=== PATIENT | male | born 1955 | race Hispanic/Latino ===

== ENCOUNTER 2016-07-08 21:44 | Inpatient (IN) | payer OTHER ==
[2016-07-08] MEDS ORDERED: Sodium Chloride 0.9% 1,000 ML IV STA ×2 (22:09→23:36)
[2016-07-08] MEDS ORDERED: Iohexol 240 (50 ml) PO ONE (22:14)
--- NOTE | 2016-07-08 22:35 | ED PDOC ---
HPI:Nausea, Vomiting, Diarrhea Time Seen by Provider: 07/08/16 21:52 Chief Complaint (Nursing): GI Problem Chief Complaint (Provider): Nausea/Vomiting History Per: Patient History/Exam Limitations: no limitations Onset/Duration Of Symptoms: Hrs (ongoing for 1 hour), Sudden Onset Current Symptoms Are (Timing): Still Present Have you had recent travel within the past 21 days to any of the following countries: [place], [place], [place] or [place]?: No Context: Food (began 30 minutes after eating pizza and a meatball) Severity: Severe Pain Scale Rating Of: 10 Quality Of Discomfort: "Pain" (diffuse) Associated Symptoms: Nausea, Vomiting (2 episodes, non-bloody, non-bilious), Other (abdominal pain). denies: Diarrhea Additional Complaint(s): Jonnathan Wolfe is a 60 year old male, with no pertinent past medical history, who presents to the emergency department for the evaluation of an acute onset of nausea and 2 episodes of non-bilious, non-bloody vomiting, inclusive of severe, diffuse abdominal pain, rated as a 10/10 in severity, that the patient began experiencing 1 hour prior to arrival. Patient states that the pain began approximately 30 minutes within eating pizza and a meatball. Denies diarrhea. PMD: none specified Past Medical History Reviewed: Historical Data, Nursing Documentation, Vital Signs Vital Signs: Last Vital Signs Temp 97.5 F L 07/08/16 21:59 Pulse 70 07/08/16 21:59 Resp 22 07/08/16 21:59 BP 131/86 07/08/16 21:59 Pulse Ox 100 07/08/16 21:59 - Medical History PMH: No Chronic Diseases - Surgical History Surgical History: No Surg Hx - Family History Family History: States: No Known Family Hx - Social History Current smoker - smoking cessation education provided: No Ex-Smoker (has not smoked in the last 12 months): No Alcohol: None Drugs: Denies - Home Medications Home Medications: Ambulatory Orders Medication Instructions Recorded No Known Home Med 07/09/16 - Allergies Allergies/Adverse Reactions: Allergies Allergy/AdvReac Type Severity Reaction Status Date / Time No Known Allergies Allergy Verified 07/08/16 21:59 Review of Systems ROS Statement: Except As Marked, All Systems Reviewed And Found Negative Gastrointestinal: Positive for: Nausea, Vomiting (2 episodes, non-bilious, non- bloody), Abdominal Pain (diffuse). Negative for: Diarrhea Physical Exam - Reviewed Nursing Documentation Reviewed: Yes Vital Signs Reviewed: Yes - Physical Exam Appears: Positive for: Non-toxic, No Acute Distress, Uncomfortable Head Exam: Positive for: ATRAUMATIC, NORMOCEPHALIC Skin: Positive for: Normal Color, Warm, Dry Cardiovascular/Chest: Positive for: Regular Rate, Rhythm. Negative for: Murmur Respiratory: Positive for: Normal Breath Sounds. Negative for: Respiratory Distress Gastrointestinal/Abdominal: Positive for: Normal Exam, Soft, Tenderness ( epigastric) Back: Positive for: Normal Inspection. Negative for: L CVA Tenderness, R CVA Tenderness Neurologic/Psych: Positive for: Alert, Oriented - Laboratory Results Result Diagrams: 07/08/16 22:13 07/08/16 22:13 - ECG O2 Sat by Pulse Oximetry: 100 (RA) Pulse Ox Interpretation: Normal Medical Decision Making Medical Decision Makin:52 Initial Impression: 60 year old male presenting to the emergency department with acute gastrointestinal distress. Initial Plan: * CT Abdomen & Pelvis w/ PO & IV Contrast * Complete Blood Count * Comprehensive Metabolic Panel * Lipase * Urine Dip * Urinalysis * Morphine 4 mg IVP * Sodium Chloride 0.9% 1,000 ml IV at 1,000 mls/hr * Iohexol 50 ml PO * Pepcid 20 mg IV * Zofran 4 mg IV * Reevaluation Labs reviewed, no clinically significant abnormalities. 0121 CT Abdomen and Pelvis With Intravenous Contrast IMPRESSION: Small bowel obstruction transitioning in the right lower quadrant. No apparent prior surgery as a risk factor. Recommend surgical consultation Stomach is fluid distended and would likely benefit with decompression Labs reviewed hsow no clinically significant abnormalities CT finding discussed at length with patient. Patient verbalized understanding on need for admission. Patient also informed that he may require placement of nasogastric tube should he have recurrent vomiting. Patient will be admitted for further treatment, surgical and GI consultation. Case discussed with Dimitry Cantu NP for [facility] Dx: Small bowel obstruction Condition:Fair Addendum Dr Tejeda (Surgical MARIELA) made aware of surgical consult and will communicate with Dr Tran in am Scribe Attestation: Documented by Jack Aguirre, acting as a scribe for Sly Bourne MD. Provider Scribe Attestation: All medical record entries made by the Scribe were at my direction and personally dictated by me. I have reviewed the chart and agree that the record accurately reflects my personal performance of the history, physical exam, medical decision making, and the department course for this patient. I have also personally directed, reviewed, and agree with the discharge instructions and disposition. Disposition - Clinical Impression Clinical Impression: Small bowel obstruction - Patient ED Disposition Is Patient to be Admitted: Yes Discussed With DrRaheel: Dimitry Cantu Counseled Patient/Family Regarding: Studies Performed, Diagnosis - Disposition Disposition Time: 03:00 Condition: FAIR
[2016-07-08 22:44] LABS: BASO # 0.1 K/uL (0.0-0.2); EOS # 0.3 K/uL (0.0-0.7); EOS % 3.3 % (0.0-4.0); HEMATOCRIT 44.1 % (35.0-51.0); LYMPH # 2.5 K/uL (1.0-4.3); LYMPH % 28.3 % (20.0-40.0); MEAN CELL VOLUME 90.9 fl (80.0-94.0); MEAN CORPUSCULAR HEMOGLOBIN 30.6 pg (27.0-31.0); MEAN CORPUSCULAR HGB CONC 33.7 g/dL (33.0-37.0); MEAN PLATELET VOLUME 10.5 fl (7.2-11.7); MONO # 0.9 K/uL (0.0-0.8); MONO % 9.8 % (0.0-10.0); NEUT # 5.1 K/uL (1.8-7.0); NEUT % 57.6 % (50.0-75.0); NRBC % 0.1 % (0.0-0.0); RED CELL DISTRIBUTION WIDTH 13.2 % (11.5-14.5); WHITE BLOOD COUNT 8.9 K/uL (4.8-10.8)
[2016-07-08 22:49] LABS: ALB/GLOB RATIO 1.9 (1.0-2.1); ALKALINE PHOSPHATASE 54 U/L (38-126); ALT/SGPT 35 U/L (21-72); AST/SGOT 31 U/L (17-59); BILIRUBIN,TOTAL 0.8 mg/dl (0.2-1.3); BLOOD UREA NITROGEN 21 mg/dl (9-20); CALCIUM 9.7 mg/dL (8.4-10.2); CARBON DIOXIDE 21 mmol/L (22-30); CHLORIDE 103 mmol/L (98-107); GFR AFRICAN-AMERICAN > 60; GLUCOSE,RANDOM 197 mg/dL (75-110); LIPASE 70 U/L (23-300); POTASSIUM 4.1 MMOL/L (3.6-5.0); SODIUM 137 mmol/l (132-148); TOTAL PROTEIN 7.2 G/DL (6.3-8.2)
[2016-07-08] MEDS ORDERED: Iohexol 240 (50 ml) ONE (22:59)
[2016-07-09] MEDS ORDERED: Iohexol 300 100 ML IJ ONE (00:42)
[2016-07-09] MEDS ORDERED: Sodium Chloride 0.9% 50 ML IV ONE (00:42)
[2016-07-09 01:35] LABS: RBC URINE 2 /hpf (0-3); URINE BACTERIA RARE (<OCC); URINE BILIRUBIN NEGATIVE (NEGATIVE); URINE BLOOD NEGATIVE (NEGATIVE); URINE COLOR YELLOW (YELLOW); URINE GLUCOSE (UA) 50 mg/dL (Normal); URINE KETONE 80 mg/dL (NEGATIVE); URINE LEUKOCYTE ESTERASE NEG Leu/uL (Negative); URINE PROTEIN 30 mg/dL (NEGATIVE); URINE UROBILINOGEN 0.2-1.0 mg/dL (0.2-1.0); WBC URINE 1 /hpf (0-5)
[2016-07-09] MEDS ORDERED: Sodium Chloride 0.9% 1,000 ML IV STA (01:50)
[2016-07-09] MEDS: Sodium Chloride 0.9% 1,000 ML IV SCH ×3 (06:09→21:55)
--- NOTE | 2016-07-09 07:17 | CP.PCM.HP ---
History of Present Illness - History of Present Illness History of Present Illness: pt admitted for sbo. had sudden onset rlq pain. surgical consult appriciated. ct and bw reviwed. pt is npo. no n/v at present no med/surg hx. pt denies precepitating factors. Present on Admission - Present on Admission Any Indicators Present on Admission: No Review of Systems - Gastrointestinal Gastrointestinal: As Per HPI, Abdominal Pain, Nausea, Vomiting Past Patient History - Past Medical History & Family History Past Medical History?: No - Past Social History Smoking Status: Never Smoked - MUSCULOSKELETAL/RHEUMATOLOGICAL Hx Falls: No - PSYCHIATRIC Hx Substance Use: No - SURGICAL HISTORY Hx Surgeries: No - ANESTHESIA Hx Anesthesia: No Meds Allergies/Adverse Reactions: Allergies Allergy/AdvReac Type Severity Reaction Status Date / Time No Known Allergies Allergy Verified 07/08/16 21:59 Physical Exam - Constitutional Appears: Well, Non-toxic, No Acute Distress - Head Exam Head Exam: ATRAUMATIC, NORMAL INSPECTION, NORMOCEPHALIC - Eye Exam Eye Exam: EOMI, Normal appearance, PERRL Pupil Exam: NORMAL ACCOMODATION, PERRL - ENT Exam ENT Exam: Mucous Membranes Moist, Normal Exam - Neck Exam Neck exam: Positive for: Normal Inspection - Respiratory Exam Respiratory Exam: Clear to Auscultation Bilateral, NORMAL BREATHING PATTERN - Cardiovascular Exam Cardiovascular Exam: REGULAR RHYTHM, RRR, +S1, +S2 - GI/Abdominal Exam GI & Abdominal Exam: Normal Bowel Sounds, Soft, Tenderness Additional comments: b/l lower quads - Extremities Exam Extremities exam: Positive for: full ROM, normal capillary refill, normal inspection, pedal pulses present - Back Exam Back exam: NORMAL INSPECTION - Neurological Exam Neurological exam: Alert, CN II-XII Intact, Normal Gait, Oriented x3, Reflexes Normal - Psychiatric Exam Psychiatric exam: Normal Affect, Normal Mood - Skin Skin Exam: Dry, Intact, Normal Color, Warm Results - Vital Signs Recent Vital Signs: Last Vital Signs Temp 98.1 F 07/09/16 01:44 Pulse 66 07/09/16 05:24 Resp 16 07/09/16 05:24 BP 137/83 07/09/16 01:44 Pulse Ox 98 07/09/16 05:24 - Labs Result Diagrams: 07/08/16 22:13 07/08/16 22:13 Assessment & Plan (1) DVT prophylaxis Assessment and Plan: scd and ae hose hold anticoag unti sugical option r/o Status: Acute (2) Small bowel obstruction Assessment and Plan: surgery consult npo pain/nausea control ivf Status: Acute Decision To Admit - Pt Status Changed To: Hospital Disposition Of: Inpatient - Admit Certification Admit to Inpatient:: After my assessment, the patient will require hospitalization for at least two midnights. This is because of the severity of symptoms shown, intensity of services needed, and/or the medical risk in this patient being treated as an outpatient. - . Bed Request Type: Med/Surg Admitting Physician: Lucas Pérez
--- NOTE | 2016-07-09 07:18 | CP.PCM.CON ---
<Ina Haque - Last Filed: 07/09/16 08:12> History of Present Illness - History of Present Illness History of Present Illness: Surgery Consult: Dr. Blake Pt is a 60M with no significant past medical or surgical hx who presented to [facility] with generalized abdominal pain that started last night. Pt states he has never had similar pain in the past, and in order to help his pain he induced himself to vomit. However, the pain did not improve and he came to the ER. He states his last BM was yesterday morning and denies flatus or BM since then. He denies any more episodes of vomiting. Denies F/C, chest pain or SOB. In the ER, a CT abdomen/pelvis was obtained and shows dilated loops of SB with a transition point suspicious for SBO. PMHx: denies PSHx: denies SocialHx: denies smoking, social EtOH NKDA Review of Systems - Review of Systems All systems: reviewed and no additional remarkable complaints except (as per HPI ) Past Patient History - Past Medical History & Family History Past Medical History?: No - Past Social History Smoking Status: Never Smoked - MUSCULOSKELETAL/RHEUMATOLOGICAL Hx Falls: No - PSYCHIATRIC Hx Substance Use: No - SURGICAL HISTORY Hx Surgeries: No - ANESTHESIA Hx Anesthesia: No Meds Allergies/Adverse Reactions: Allergies Allergy/AdvReac Type Severity Reaction Status Date / Time No Known Allergies Allergy Verified 07/08/16 21:59 - Medications Medications: Current Medications Famotidine (Pepcid) 20 mg IV Q12 NAIDA Hydromorphone HCl (Dilaudid) 1 mg IVP Q6 PRN PRN Reason: abdominal pain Last Admin: 07/09/16 06:16 Dose: 1 mg Sodium Chloride (Sodium Chloride 0.9%) 1,000 mls @ 150 mls/hr IV .Q6H40M STA Stop: 07/09/16 08:29 Last Admin: 07/09/16 02:10 Dose: 150 mls/hr Sodium Chloride (Sodium Chloride 0.9%) 1,000 mls @ 125 mls/hr IV .Q8H NAIDA Stop: 07/10/16 05:13 Last Admin: 07/09/16 06:09 Dose: Not Given Ondansetron HCl (Zofran Inj) 4 mg IV Q6 PRN PRN Reason: Nausea/Vomiting Physical Exam - Constitutional Appears: Well, No Acute Distress - Head Exam Head Exam: ATRAUMATIC, NORMOCEPHALIC - ENT Exam ENT Exam: Mucous Membranes Moist - Respiratory Exam Respiratory Exam: NORMAL BREATHING PATTERN - Cardiovascular Exam Cardiovascular Exam: RRR - GI/Abdominal Exam GI & Abdominal Exam: Diminished Bowel Sounds, Distended (slight distention), Soft, Tenderness (generalized) - Extremities Exam Extremities exam: Positive for: pedal pulses present - Neurological Exam Neurological exam: Alert, Oriented x3 - Skin Skin Exam: Dry, Warm Results - Vital Signs Recent Vital Signs: Last Vital Signs Temp 98.1 F 07/09/16 01:44 Pulse 66 07/09/16 05:24 Resp 16 07/09/16 05:24 BP 137/83 07/09/16 01:44 Pulse Ox 98 07/09/16 05:24 - Labs Result Diagrams: 07/08/16 22:13 07/08/16 22:13 - Imaging and Cardiology CT scan - abdomen Status: Image reviewed by me Assessment & Plan - Assessment and Plan (Free Text) Assessment: 60M with SBO Plan: - NPO - IVF, pain management - will reassess need for NGT if pt starts to vomit - serial abdominal exams - encourage ambulation - d/w Dr. Hayden Haque, PGY-2 Surgery <Primo Blake - Last Filed: 07/09/16 10:11> History of Present Illness - History of Present Illness History of Present Illness: Patient was seen and examined at the bedside. Agree with resident's note above Meds - Medications Medications: Current Medications Famotidine (Pepcid) 20 mg IV Q12 NAIDA Hydromorphone HCl (Dilaudid) 1 mg IVP Q4H PRN PRN Reason: abdominal pain Sodium Chloride (Sodium Chloride 0.9%) 1,000 mls @ 125 mls/hr IV .Q8H NAIDA Stop: 07/10/16 05:13 Last Admin: 07/09/16 06:09 Dose: Not Given Ondansetron HCl (Zofran Inj) 4 mg IV Q6 PRN PRN Reason: Nausea/Vomiting Results - Vital Signs Recent Vital Signs: Last Vital Signs Temp 98.7 F 07/09/16 08:38 Pulse 63 07/09/16 08:38 Resp 20 07/09/16 08:38 BP 142/81 07/09/16 08:38 Pulse Ox 99 07/09/16 08:38 - Labs Result Diagrams: 07/08/16 22:13 07/08/16 22:13 Assessment & Plan - Assessment and Plan (Free Text) Plan: - Keep NPO - IV fluids - Pain control - NG tube insersion - Pepcid - Will follow
--- NOTE | 2016-07-09 08:26 | CT ---
PROCEDURE: CT Abdomen and Pelvis with contrast HISTORY: Diffuse, generalized abdominal pain. COMPARISON: None. TECHNIQUE: Contrast dose: 95 cc Omnipaque 300. Radiation dose: Total exam DLP = mGy-cm. This CT exam was performed using one or more of the following dose reduction techniques: Automated exposure control, adjustment of the mA and/or kV according to patient size, and/or use of iterative reconstruction technique. FINDINGS: LOWER THORAX: Unremarkable. LIVER: Unremarkable. No gross lesion or ductal dilatation. GALLBLADDER AND BILE DUCTS: Unremarkable. PANCREAS: Unremarkable. No gross lesion or ductal dilatation. SPLEEN: Unremarkable. ADRENALS: Unremarkable. No mass. KIDNEYS AND URETERS: Unremarkable. No hydronephrosis. No solid mass. VASCULATURE: Unremarkable. No aortic aneurysm. BOWEL: Distal small bowel obstruction with proximal loops of dilated fluid-filled the ileum and jejunum. The stomach is markedly distended. APPENDIX: Normal appendix. PERITONEUM: No free air, trace free fluid in the pelvis. LYMPH NODES: Unremarkable. No enlarged lymph nodes. BLADDER: Bladder wall thickening more likely to be related to decompression than cystitis. REPRODUCTIVE: Unremarkable. BONES: No acute fracture. Grade 1 anterolisthesis L5-S1. Associated spondylolysis. OTHER FINDINGS: None. IMPRESSION: Early, incomplete small bowel obstruction. Concordant results (preliminary interpretation) provided by Jumio. Procedure Completed: 01:00. Preliminary ([facility]Rad) Report: Dictated and Authenticated: 01:21. Final Interpretation: 08:23. July 09, 2016.
[2016-07-09] MEDS ORDERED: Chlorhexidine Gluconate 1 APPL/PKT TP ONE (10:02)
--- NOTE | 2016-07-09 12:26 | RAD ---
HISTORY: sbo COMPARISON: None available. TECHNIQUE: Chest PA and lateral FINDINGS: LUNGS: No focal consolidation. Please note that chest x-ray has limited sensitivity for the detection of pulmonary masses. PLEURA: No significant pleural effusion identified. No definite pneumothorax . CARDIOVASCULAR: Heart size appears within normal limits. Mildly tortuous aorta. OSSEOUS STRUCTURES: No acute osseous abnormality identified. VISUALIZED UPPER ABDOMEN: Nonspecific bowel loops within the upper abdomen. OTHER FINDINGS: None. IMPRESSION: No focal consolidation, significant pleural effusion, or definite pneumothorax identified.
[2016-07-09 12:31] LABS: PARTIAL THROMBOPLASTIN TIME 27.1 SECONDS (23.3-32.5)
[2016-07-09] MEDS ORDERED: HYDROmorphone 0.5 mg/0.5 ml ISec ONE ×3 (12:54→15:37)
[2016-07-09] MEDS ORDERED: HYDROmorphone 0.5 mg/0.5 ml ISec IVP STA (12:59)
[2016-07-09] MEDS ORDERED: Bupivacaine 0.5% Inj(30mL) ONE (13:07)
[2016-07-09] MEDS ORDERED: Propofol 10 mg/ml Inj (20 ML) ONE (13:27)
[2016-07-09] MEDS ORDERED: Midazolam 2 MG/2 ML VIAL ONE (13:27)
[2016-07-09] MEDS ORDERED: Succinylcholine 200 mg/10 ml Inj IV ONE (13:27)
[2016-07-09] MEDS ORDERED: Rocuronium 10 mg/ml (5 ml) ONE (13:28)
[2016-07-09] MEDS ORDERED: Lactated Ringer's 1,000 ML IV ONE ×2 (13:28→15:10)
[2016-07-09] MEDS ORDERED: Neostigmine Methylsulfate 3mg/3ml Syringe IV ONE (14:37)
--- NOTE | 2016-07-09 15:18 | PCM.SURG1 ---
Surgeon's Initial Post Op Note - Surgeon's Notes Surgeon: Dr. Blake Production Wood Craftsman: Dr. Payne, Dr. Luis, Dr. Guidry Type of Anesthesia: General Endo Pre-Operative Diagnosis: Small bowel Obstruction Operative Findings: Ischemic small bowel Post-Operative Diagnosis: Small bowel Obstruction Operation Performed: Diagnoistic Laparoscopy. Exploratory Laparotomy. Small bowel resection Specimen/Specimens Removed: portion of ileum Estimated Blood Loss: EBL {In ML}: 20 Blood Products Given: N/A Drains Used: No Drains Post-Op Condition: Good Date of Surgery/Procedure: 07/09/16 Time of Surgery/Procedure: 13:00
[2016-07-09] MEDS: HYDROmorphone 0.5 mg/0.5 ml ISec IVP PRN ×2 (15:30→15:40)
[2016-07-09] MEDS ORDERED: Piperacillin/Tazobact 3.375 gm Inj IVPB ONE (16:10)
--- NOTE | 2016-07-09 17:51 | OP ---
PROCEDURE DATE: 07/09/2016 PREOPERATIVE DIAGNOSIS: Small-bowel obstruction. POSTOPERATIVE DIAGNOSIS: Small-bowel obstruction, ischemic bowel. SURGEON: Primo Blake MD LANDSCAPE PHOTOGRAPHER: Elmer BROWN LANDSCAPE PHOTOGRAPHER: Toby PROCEDURE: Diagnostic laparoscopy, exploratory laparotomy, small-bowel resection. ANESTHESIA: General with endotracheal intubation. INTRAVENOUS FLUIDS: Crystalloids. ESTIMATED BLOOD LOSS: 50 mL. INTRAOPERATIVE FINDINGS: Necrotic small bowel. SPECIMEN: Small bowel. BRIEF HISTORY: The patient is a very pleasant 60-year-old gentleman who came to the hospital complaining of half a day duration of severe abdominal pain of sudden onset. Upon further investigation, the patient was found to have small- bowel obstruction on a CAT scan. All the risks and benefits of the procedure were explained to the patient and, with the patient having a full understanding of all the risks and benefits involved, informed consent was obtained and patient was taken to the operating room for above-stated procedure. PROCEDURE: The patient was brought into the operating room and placed supine on the operating table. Bilateral Flowtron boots were applied to patient's lower extremities. After successful induction of anesthesia and successful endotracheal intubation by the anesthesia team, Pat catheter was inserted into the patient's urinary bladder and, subsequent to that, the patient's abdomen was shaved and prepped with ChloraPrep stick and draped in the standard surgical fashion. Prior to the beginning of the procedure, patient received prophylactic Ancef antibiotic. Timeout was called in the room and everyone in the room was in agreement. Using Veress needle, patient's abdomen was entered at the umbilicus and pneumoperitoneum was achieved with good opening pressures. Once this was accomplished, using an 11-blade scalpel knife, approximately 5 mm incision was made in transverse fashion in the left upper quadrant of the patient's abdomen and, subsequent to that, using a 5 mm Optiview Visiport, patient's abdomen was entered under direct visualization and, once this was accomplished, a 5 mm 0-degree scope was introduced into the patient's abdomen and abdomen was inspected. Our attention was turned to the lower abdomen of the patient, where there appeared to be a loop of ischemic bowel. At that point in time, another 5 mm incision was made with an 11-blade scalpel knife in a transverse fashion, left lower quadrant of the patient's abdomen and, subsequent to that, another 5 mm trocar was introduced into the patient's abdomen. At that point in time, using atraumatic bowel grasper, the bowel was run up to the point of area of bowel necrosis. At that point in time, decision was made to convert the procedure to exploratory laparotomy. Using 10-blade scalpel knife, approximately a 6 cm incision was made below the umbilicus in a longitudinal fashion and, subsequent to that, dissection was carried down with electrical cautery until the fascial layer was visualized. Once the fascial layer was visualized, it was transected with electrical cautery and 2 Kati clamps were placed on both ends of the fascia. At that point in time, fascial layer was opened up fully along the entire incision and the peritoneal layer was encountered. Peritoneum was clamped with a Kati clamp and transected with a Metzenbaum scissor. At that point in time, the patient's abdominal cavity was entered. Upon the entrance to the abdomen, we visualized some bloody ascites. Fluid was suctioned out and, at that point in time, the small bowel was eviscerated and it was run all the way from the ligament of Treitz all the way down to the ileocecal valve. There appeared to be an area of ischemia of the small bowel measuring approximately 15 cm in length. At that point in time , the patient's entire abdomen was examined and there appeared to be a small adhesive band coming from the sigmoid colon. That was probably the cause of the patient's internal herniation of the bowel and bowel ischemia. Once this was accomplished, the entire small bowel was reduced back into the abdominal cavity and the area of ischemia was inspected and decision was made to resect that area. Using electrical cautery a small bonifacio was made in the mesentery slightly proximal to the area of ischemia and Kati clamp was passed through the mesentery and a 75-mm blue load FINA stapler was fired across the bowel. Then, attention was turned to the distal end of the ischemic bowel. Another small bonifacio was made in the mesentery slightly distal to the area of the bowel ischemia and, subsequent to that, Kati clamp was passed through the area of mesentery and, subsequent to that, another 75-mm blue load FINA stapler was fired across the bowel. At that point in time, the mesentery of the small bowel was taken with a Kati technique and a specimen was transected with Metzenbaum scissor and passed off to the Hou stand as specimen. At that point in time, using 0 Vicryl tie, the mesentery was tied off and Kati clamps were removed. Once this was accomplished, 2 ends of the bowel were approximated right next in a [id number] fashion with 3-0 silk suture on SH needle, 4 interrupted sutures were placed and, once this was accomplished, 2 enterotomies were made in both proximal and distal ends of the small bowel. At that point in time 2 Allis clamps were introduced into the bowel lumen. Once this was accomplished, we used a 75-mm blue load FINA stapler to create anastomosis and, at that point in time, the defect of the bowel was closed with blue load 60 TA stapler. Once the stapler was fired, the redundant piece of the bowel was transected with curved Hou and, at that point in time, the staple line was reinforced with a running 3-0 chromic suture. Once this was accomplished, anastomosis was inspected. It appeared to be satisfactory and it appeared to be hemostatic. The bowel was reduced back into the abdominal cavity. Some of the bloody ascites was suctioned out and, at that point in time, 2 Zen clamps were placed on both ends of the fascia and the fascia layer was closed with two #1 looped PDS's, one from above, one from below, tied in the middle and , at that point in time, the patient's wound was irrigated and dried, and skin shilpi were applied to the skin. The patient's abdomen was washed and dried and a clean dressing with 4 x 4s, ABD, and some tape were applied to the incision. The patient was successfully extubated by the anesthesia team, transferred to the stretcher, and taken to the recovery room in a stable condition. At the end of the procedure, all instrument counts, needles, and sponges were correct. Primo Blake MD cc: [id number] TT: 07/09/2016 17:50:33 osvaldo JENNINGS
--- NOTE | 2016-07-09 19:10 | CARD ---
APPROVED REPORT EKG Measurement Heart [id number] <Conclusion> Normal sinus rhythm Normal ECG
[2016-07-09] MEDS: Piperacillin/Tazobact 3.375 GM in Sodium Chloride 0.9% 100 ML IVPB SCH ×2 (19:12→21:47)
[2016-07-09] MEDS: Lactated Ringer's 1,000 ML IV SCH (19:12)
[2016-07-10] MEDS: Lactated Ringer's 1,000 ML IV SCH ×3 (01:21→11:42)
[2016-07-10] MEDS: Piperacillin/Tazobact 3.375 GM in Sodium Chloride 0.9% 100 ML IVPB SCH ×4 (04:07→22:00)
--- NOTE | 2016-07-10 07:20 | CP.PCM.PN ---
<Suzan Luis - Last Filed: 07/10/16 07:17> Subjective - Date & Time of Evaluation Date of Evaluation: 07/10/16 Time of Evaluation: 07:17 - Subjective Subjective: General Surgery - Dr. Blake Pt S&E. JOSE ROBERTO. Pt complains of mild abdominal pain from incision but states overall much improved since prior to surgery. He has NGT in place w/ thick brown drainage. Braga in place with clear yellow urine 950cc/12hrs. Pt denies any N/V, F/C, SOB/Cp. Objective - Vital Signs/Intake and Output Vital Signs (last 24 hours): Temp Pulse Resp BP Pulse Ox 98.9 F 75 18 148/85 96 07/10/16 05:00 07/10/16 05:00 07/10/16 05:00 07/10/16 05:00 07/10/16 05:00 Intake and Output: 07/10/16 07/10/16 06:59 18:59 Intake Total 500 Output Total 300 Balance 200 - Medications Medications: Current Medications Famotidine (Pepcid) 20 mg IV Q12 [facility] Last Admin: 07/09/16 22:00 Dose: 20 mg Hydromorphone HCl (Dilaudid) 1 mg IVP Q4H PRN PRN Reason: Pain, moderate (4-7) Lactated Ringer's (Lactated Ringer's) 1,000 mls @ 100 mls/hr IV .Q10H [facility] Last Admin: 07/10/16 02:25 Dose: 100 mls/hr Piperacillin Sod/Tazobactam (Sod 3.375 gm/ Sodium Chloride) 100 mls @ 100 mls/ hr IVPB Q6 [facility] Last Admin: 07/10/16 04:07 Dose: 100 mls/hr Ondansetron HCl (Zofran Inj) 4 mg IV Q6 PRN PRN Reason: Nausea/Vomiting Last Admin: 07/09/16 10:26 Dose: 4 mg - Labs Labs: PT 11.5 SECONDS (9.6-11.2) H 07/09/16 11:50 INR 1.11 (0.92-1.08) H 07/09/16 11:50 APTT 27.1 SECONDS (23.3-32.5) 07/09/16 11:50 - Constitutional Appears: No Acute Distress - Head Exam Head Exam: ATRAUMATIC, NORMAL INSPECTION, NORMOCEPHALIC - Eye Exam Eye Exam: Normal appearance - Respiratory Exam Respiratory Exam: NORMAL BREATHING PATTERN. absent: Respiratory Distress - GI/Abdominal Exam GI & Abdominal Exam: Soft, Tenderness (mild ttp around incision). absent: Distended, Guarding, Rebound - Neurological Exam Neurological Exam: Alert, Oriented x3 - Psychiatric Exam Psychiatric exam: Normal Affect, Normal Mood - Skin Skin Exam: Dry, Intact Assessment and Plan - Assessment and Plan (Free Text) Assessment: 60 yo M POD #1 s/p Dx Lap, Ex-Lap with Small bowel resection for SBO -Continue NGT to low continuous suction, may be disconnected periodically for ambulation -D/C braga catheter -Continue IVF, may have ice chips -Zosyn -Pain control -Encourage OOB/Incentive Spirometer DW Dr. Hayden Luis, PGY2 <Primo Blake - Last Filed: 07/10/16 18:33> Subjective - Date & Time of Evaluation Time of Evaluation: 18:30 - Subjective Subjective: Patient was seen and examined at the bedside. Zee with resident's note above Objective - Vital Signs/Intake and Output Vital Signs (last 24 hours): Temp Pulse Resp BP Pulse Ox 100.3 F H 73 18 147/92 H 100 07/10/16 16:19 07/10/16 16:19 07/10/16 16:19 07/10/16 16:19 07/10/16 16:19 Intake and Output: 07/10/16 07/10/16 06:59 18:59 Intake Total 500 1400 Output Total 300 1225 Balance 200 175 - Medications Medications: Current Medications Acetaminophen (Tylenol 650 Mg Supp) 650 mg [place] Q6 PRN PRN Reason: Fever >100.4 F Famotidine (Pepcid) 20 mg IV Q12 [facility] Last Admin: 07/10/16 09:43 Dose: 20 mg Hydromorphone HCl (Dilaudid) 1 mg IVP Q4H PRN PRN Reason: Pain, moderate (4-7) Last Admin: 07/10/16 09:51 Dose: 1 mg Lactated Ringer's (Lactated Ringer's) 1,000 mls @ 100 mls/hr IV .Q10H [facility] Last Admin: 07/10/16 11:42 Dose: Not Given Piperacillin Sod/Tazobactam (Sod 3.375 gm/ Sodium Chloride) 100 mls @ 100 mls/ hr IVPB Q6 [facility] Last Admin: 07/10/16 16:06 Dose: 100 mls/hr Sodium Chloride (Sodium Chloride 0.9%) 1,000 mls @ 999 mls/hr IV .Q1H1M [facility] Stop: 07/11/16 11:07 Last Admin: 07/10/16 13:03 Dose: Not Given Ondansetron HCl (Zofran Inj) 4 mg IV Q6 PRN PRN Reason: Nausea/Vomiting Last Admin: 07/09/16 10:26 Dose: 4 mg - Labs Labs: 07/10/16 06:40 07/10/16 06:40 PT 11.5 SECONDS (9.6-11.2) H 07/09/16 11:50 INR 1.11 (0.92-1.08) H 07/09/16 11:50 APTT 27.1 SECONDS (23.3-32.5) 07/09/16 11:50 Assessment and Plan - Assessment and Plan (Free Text) Plan: - Pain control - Repeat labs in am - DVT ppx - Will follow
[2016-07-10 07:49] LABS: BASO % 0.4 % (0.0-2.0); EOS % 0.1 % (0.0-4.0); HEMATOCRIT 43.5 % (35.0-51.0); LYMPH # 1.3 K/uL (1.0-4.3); LYMPH % 11.8 % (20.0-40.0); MEAN CELL VOLUME 92.1 fl (80.0-94.0); MEAN CORPUSCULAR HEMOGLOBIN 30.4 pg (27.0-31.0); MEAN PLATELET VOLUME 11.2 fl (7.2-11.7); MONO # 0.9 K/uL (0.0-0.8); MONO % 8.4 % (0.0-10.0); NEUT # 8.8 K/uL (1.8-7.0); NEUT % 79.3 % (50.0-75.0); NRBC % 0.1 % (0.0-0.0); RED CELL DISTRIBUTION WIDTH 13.4 % (11.5-14.5); WHITE BLOOD COUNT 11.2 K/uL (4.8-10.8)
[2016-07-10 08:00] LABS: BLOOD UREA NITROGEN 10 mg/dl (9-20); CALCIUM 8.4 mg/dL (8.4-10.2); CARBON DIOXIDE 28 mmol/L (22-30); CHLORIDE 102 mmol/L (98-107); GFR AFRICAN-AMERICAN > 60; GLUCOSE,RANDOM 120 mg/dL (75-110); SODIUM 136 mmol/l (132-148); TOTAL PROTEIN 5.7 G/DL (6.3-8.2)
[2016-07-10 08:01] LABS: ALB/GLOB RATIO 1.6 (1.0-2.1); ALKALINE PHOSPHATASE 39 U/L (38-126); ALT/SGPT 26 U/L (21-72); AST/SGOT 34 U/L (17-59); BILIRUBIN,TOTAL 1.1 mg/dl (0.2-1.3)
--- NOTE | 2016-07-10 08:22 | CP.PCM.PN ---
Subjective - Date & Time of Evaluation Date of Evaluation: 07/10/16 Time of Evaluation: 08:20 - Subjective Subjective: pt w/ ngt in plac eand braga s/p ex lap and necrotic bowel resection. pain controlled w/ meds. surgical progress note appriciated. ngt outpt noted. bw reviewed. Objective - Vital Signs/Intake and Output Vital Signs (last 24 hours): Temp Pulse Resp BP Pulse Ox 99.7 F H 73 20 141/84 95 07/10/16 07:47 07/10/16 07:47 07/10/16 07:47 07/10/16 07:47 07/10/16 07:47 Intake and Output: 07/10/16 07/10/16 06:59 18:59 Intake Total 500 1400 Output Total 300 1225 Balance 200 175 - Medications Medications: Current Medications Famotidine (Pepcid) 20 mg IV Q12 [facility] Last Admin: 07/09/16 22:00 Dose: 20 mg Hydromorphone HCl (Dilaudid) 1 mg IVP Q4H PRN PRN Reason: Pain, moderate (4-7) Lactated Ringer's (Lactated Ringer's) 1,000 mls @ 100 mls/hr IV .Q10H [facility] Last Admin: 07/10/16 02:25 Dose: 100 mls/hr Piperacillin Sod/Tazobactam (Sod 3.375 gm/ Sodium Chloride) 100 mls @ 100 mls/ hr IVPB Q6 [facility] Last Admin: 07/10/16 04:07 Dose: 100 mls/hr Ondansetron HCl (Zofran Inj) 4 mg IV Q6 PRN PRN Reason: Nausea/Vomiting Last Admin: 07/09/16 10:26 Dose: 4 mg - Labs Labs: 07/10/16 06:40 07/10/16 06:40 PT 11.5 SECONDS (9.6-11.2) H 07/09/16 11:50 INR 1.11 (0.92-1.08) H 07/09/16 11:50 APTT 27.1 SECONDS (23.3-32.5) 07/09/16 11:50 - Constitutional Appears: Well, Non-toxic, No Acute Distress - Head Exam Head Exam: ATRAUMATIC, NORMAL INSPECTION, NORMOCEPHALIC - Eye Exam Eye Exam: EOMI, Normal appearance, PERRL Pupil Exam: NORMAL ACCOMODATION, PERRL - ENT Exam ENT Exam: Mucous Membranes Moist, Normal Exam - Neck Exam Neck Exam: Full ROM, Normal Inspection. absent: Lymphadenopathy - Respiratory Exam Respiratory Exam: Clear to Ausculation Bilateral, NORMAL BREATHING PATTERN - Cardiovascular Exam Cardiovascular Exam: REGULAR RHYTHM, RRR, +S1, +S2. absent: Murmur - GI/Abdominal Exam GI & Abdominal Exam: Soft, Hypoactive Bowel Sounds. absent: Tenderness Additional comments: dsg w/ scant dc - Extremities Exam Extremities Exam: Full ROM, Normal Capillary Refill, Normal Inspection. absent : Joint Swelling, Pedal Edema - Back Exam Back Exam: NORMAL INSPECTION - Neurological Exam Neurological Exam: Alert, Awake, CN II-XII Intact, Normal Gait, Oriented x3 - Psychiatric Exam Psychiatric exam: Normal Affect, Normal Mood - Skin Skin Exam: Dry, Intact, Normal Color, Warm Assessment and Plan (1) DVT prophylaxis Status: Acute (2) Small bowel obstruction Status: Acute - Assessment and Plan (Free Text) Assessment: (1) DVT prophylaxis Assessment and Plan: scd and ae hose hold anticoag unti sugical option r/o start lovenox tomorrow if surgery clears Status: Acute (2) Small bowel obstruction Assessment and Plan: surgery consult npo pain/nausea control ivf pod 1 bowel resection cont ngt and dc braga as per surgery will follow closely Status: Acute
[2016-07-10] MEDS: HYDROmorphone 0.5 mg/0.5 ml ISec IVP PRN ×2 (09:51→19:45)
--- NOTE | 2016-07-10 11:31 | PCM.RRTMUL ---
<Aris Tello - Last Filed: 07/10/16 11:38> BOAT GARNISHER Nurse Assessment - Vital Signs Blood Pressure:: 141/84 Pulse Rate:: 73 Respiratory Rate:: 20 Temperature:: 99.7 F I.Reason for BOAT GARNISHER - A) Acute Change in Patient: (Select all that apply): Acute change in heart rate less than 50 or greater than 120 - A) Initial Vital Signs: Blood Pressure: 152/104 Pulse Rate: 218 (Patient was having chills) Respiratory Rate: 20 Temperature: 102 F O2 Sat by Pulse Oximetry: 94 - B) Neurological Status (Select all that apply): Alert, Oriented, Follows Commands - C) Respiratory Oxygen Delivery Method: Room Air - Constitutional Appears: No Acute Distress - Head Head Exam: NORMAL INSPECTION - Eyes Eye Exam: PERRL - Respiratory Exam Respiratory Exam: Clear to Ausculation Bilateral, NORMAL BREATHING PATTERN - Cardiovascular Exam Cardiovascular Exam: REGULAR RHYTHM - GI/Abdominal Exam GI & Abdominal Exam: Tenderness (moderate diffuse tenderness), Normal Bowel Sounds. absent: Distended - Neurological Exam Neurological Exam: Alert, Awake, Oriented x3 - Extremities Exam Extremities Exam: Normal Capillary Refill Plan - A. End of BOAT GARNISHER Vital Signs: Blood Pressure: 142/77 Pulse Rate: 94 Respiratory Rate: 18 Temperature: 102 F O2 Sat by Pulse Oximetry: 96 Finger Stick Blood Glucose: 180 - B. Assessment of Findings&Treatment Plan 60 y/o M admitted for intestinal occlusion POD1 was called BOAT GARNISHER for elevated HR. A&P Sinus tachycardia due to fever No SOB or CP resolved POD1(Intestinal occlusion) Initially HR 218 while patient was shivering, most likely inaccurate reading BP 152/104 Temp 102F Alert, Oriented O2sat RA 94 Accucheck 180 NG tube functional with greenish/brownish drainage Tylenol WA stat once and PRN IV NS bolus 1L then 150mls EKG: WNL Repeat VS: HR 94, BP 142/77 Patient stable Sx contacted Cont Zosyn IV Incentive spirometer WBC from AM 11.2 <Breanne Szymanski - Last Filed: 07/10/16 17:30> Attending/Attestation - Attestation I have personally seen and examined this patient.: Yes I have fully participated in the care of the patient.: Yes I have reviewed all pertinent clinical information, including history, physical exam and plan: Yes Notes (Text): 07/10/16 17:26 BOAT GARNISHER called bec of tachycardia Pt seen and examined with the residenrts, case discussed , agree with above Event Note. Initial Heart Rate reading likely erroneous as pt was having chills - VS machine picked up the shivering as tachycardia Pt tachycardic however only 104 on manual likely due to fever of 102F - Tylenol suppository - IVF hydration - EKG : normal SR, no abn rhythm - Dr Blake notified of event, case discussed - Dr Cantu- pt's PMD notified of event - Surgical residents came up to see pt
[2016-07-10] MEDS: Sodium Chloride 0.9% 1,000 ML IV SCH ×2 (11:43→13:03)
[2016-07-11] MEDS: Lactated Ringer's 1,000 ML IV SCH ×2 (00:24→12:50)
[2016-07-11] MEDS: Piperacillin/Tazobact 3.375 GM in Sodium Chloride 0.9% 100 ML IVPB SCH ×4 (03:42→22:18)
--- NOTE | 2016-07-11 07:31 | CP.PCM.PN ---
Subjective - Date & Time of Evaluation Date of Evaluation: 07/11/16 Time of Evaluation: 07:31 - Subjective Subjective: pt doing well in bed. no complaints. still w/ abd tenderness. ngt in placement. braga dc nad pt urinating freely. had fever and tachycardia yesterday relief w/ tylenol. am labs penidng surgery note appriciated. Objective - Vital Signs/Intake and Output Vital Signs (last 24 hours): Temp Pulse Resp BP Pulse Ox 98.4 F 64 19 137/76 97 07/11/16 04:19 07/11/16 04:19 07/11/16 04:19 07/11/16 04:19 07/11/16 04:19 Intake and Output: 07/11/16 07/11/16 06:59 18:59 Output Total 400 Balance -400 - Medications Medications: Current Medications Acetaminophen (Tylenol 650 Mg Supp) 650 mg [place] Q6 PRN PRN Reason: Fever >100.4 F Famotidine (Pepcid) 20 mg IV Q12 [facility] Last Admin: 07/10/16 21:00 Dose: 20 mg Heparin Sodium (Porcine) (Heparin) 5,000 units SC Q8 [facility] PRN Reason: Protocol Last Admin: 07/11/16 00:23 Dose: 5,000 units Hydromorphone HCl (Dilaudid) 1 mg IVP Q4H PRN PRN Reason: Pain, moderate (4-7) Last Admin: 07/11/16 04:28 Dose: 1 mg Lactated Ringer's (Lactated Ringer's) 1,000 mls @ 100 mls/hr IV .Q10H [facility] Last Admin: 07/11/16 00:24 Dose: 100 mls/hr Piperacillin Sod/Tazobactam (Sod 3.375 gm/ Sodium Chloride) 100 mls @ 100 mls/ hr IVPB Q6 [facility] Last Admin: 07/11/16 03:42 Dose: 100 mls/hr Sodium Chloride (Sodium Chloride 0.9%) 1,000 mls @ 999 mls/hr IV .Q1H1M [facility] Stop: 07/11/16 11:07 Last Admin: 07/10/16 13:03 Dose: Not Given Ondansetron HCl (Zofran Inj) 4 mg IV Q6 PRN PRN Reason: Nausea/Vomiting Last Admin: 07/09/16 10:26 Dose: 4 mg - Labs Labs: 07/10/16 06:40 07/10/16 06:40 PT 11.5 SECONDS (9.6-11.2) H 07/09/16 11:50 INR 1.11 (0.92-1.08) H 07/09/16 11:50 APTT 27.1 SECONDS (23.3-32.5) 07/09/16 11:50 - Constitutional Appears: Well, Non-toxic, No Acute Distress - Head Exam Head Exam: ATRAUMATIC, NORMAL INSPECTION, NORMOCEPHALIC - Eye Exam Eye Exam: EOMI, Normal appearance, PERRL Pupil Exam: NORMAL ACCOMODATION, PERRL - ENT Exam ENT Exam: Mucous Membranes Moist, Normal Exam - Neck Exam Neck Exam: Full ROM, Normal Inspection. absent: Lymphadenopathy - Respiratory Exam Respiratory Exam: Clear to Ausculation Bilateral, NORMAL BREATHING PATTERN - Cardiovascular Exam Cardiovascular Exam: REGULAR RHYTHM, RRR, +S1, +S2. absent: Murmur - GI/Abdominal Exam GI & Abdominal Exam: Soft, Tenderness, Normal Bowel Sounds Additional comments: diffuse abd tenderness - Extremities Exam Extremities Exam: Full ROM, Normal Capillary Refill, Normal Inspection. absent : Joint Swelling, Pedal Edema - Back Exam Back Exam: NORMAL INSPECTION - Neurological Exam Neurological Exam: Alert, Awake, CN II-XII Intact, Normal Gait, Oriented x3 - Psychiatric Exam Psychiatric exam: Normal Affect, Normal Mood - Skin Skin Exam: Dry, Intact, Normal Color, Warm Assessment and Plan (1) DVT prophylaxis Assessment & Plan: scd and ae hose, ambulation heparin Status: Acute (2) Small bowel obstruction Assessment & Plan: zosyn paind and nausea control ivf ngt surgery fever control f/u c/s ice chips Status: Acute
[2016-07-11 07:41] LABS: ALKALINE PHOSPHATASE 38 U/L (38-126); ALT/SGPT 27 U/L (21-72); AST/SGOT 37 U/L (17-59); BILIRUBIN,TOTAL 1.2 mg/dl (0.2-1.3); BLOOD UREA NITROGEN 10 mg/dl (9-20); CALCIUM 8.3 mg/dL (8.4-10.2); CARBON DIOXIDE 28 mmol/L (22-30); CHLORIDE 101 mmol/L (98-107); GFR AFRICAN-AMERICAN > 60; GLUCOSE,RANDOM 96 mg/dL (75-110); POTASSIUM 3.8 MMOL/L (3.6-5.0); SODIUM 136 mmol/l (132-148); TOTAL PROTEIN 5.7 G/DL (6.3-8.2)
[2016-07-11 07:43] LABS: ALB/GLOB RATIO 1.4 (1.0-2.1)
--- NOTE | 2016-07-11 07:53 | CP.PCM.PN ---
<Jt Oneal - Last Filed: 07/11/16 07:50> Subjective - Date & Time of Evaluation Date of Evaluation: 07/11/16 Time of Evaluation: 07:50 - Subjective Subjective: General Surgery Progress Note for Dr. Blake This 60M was seen and examined this AM at bedside. Nurse reports no acute events overnight. Patient was afebrile overnight with stable vitals. 150cc bilious output overnight from NGT. He reports abdominal pain on his left side worse with coughs. He denies any chest pain, SOB, nause, vomiting or diarrhea. Objective - Vital Signs/Intake and Output Vital Signs (last 24 hours): Temp Pulse Resp BP Pulse Ox 98.9 F 67 20 143/83 97 07/11/16 07:47 07/11/16 07:47 07/11/16 07:47 07/11/16 07:47 07/11/16 07:47 Intake and Output: 07/11/16 07/11/16 06:59 18:59 Output Total 400 Balance -400 - Medications Medications: Current Medications Acetaminophen (Tylenol 650 Mg Supp) 650 mg [place] Q6 PRN PRN Reason: Fever >100.4 F Famotidine (Pepcid) 20 mg IV Q12 [facility] Last Admin: 07/10/16 21:00 Dose: 20 mg Heparin Sodium (Porcine) (Heparin) 5,000 units SC Q8 [facility] PRN Reason: Protocol Last Admin: 07/11/16 00:23 Dose: 5,000 units Hydromorphone HCl (Dilaudid) 1 mg IVP Q4H PRN PRN Reason: Pain, moderate (4-7) Last Admin: 07/11/16 04:28 Dose: 1 mg Lactated Ringer's (Lactated Ringer's) 1,000 mls @ 100 mls/hr IV .Q10H [facility] Last Admin: 07/11/16 00:24 Dose: 100 mls/hr Piperacillin Sod/Tazobactam (Sod 3.375 gm/ Sodium Chloride) 100 mls @ 100 mls/ hr IVPB Q6 [facility] Last Admin: 07/11/16 03:42 Dose: 100 mls/hr Sodium Chloride (Sodium Chloride 0.9%) 1,000 mls @ 999 mls/hr IV .Q1H1M [facility] Stop: 07/11/16 11:07 Last Admin: 07/10/16 13:03 Dose: Not Given Ondansetron HCl (Zofran Inj) 4 mg IV Q6 PRN PRN Reason: Nausea/Vomiting Last Admin: 07/09/16 10:26 Dose: 4 mg - Labs Labs: 07/10/16 06:40 07/11/16 07:04 PT 11.5 SECONDS (9.6-11.2) H 07/09/16 11:50 INR 1.11 (0.92-1.08) H 07/09/16 11:50 APTT 27.1 SECONDS (23.3-32.5) 07/09/16 11:50 - Constitutional Appears: Non-toxic, No Acute Distress - Head Exam Head Exam: ATRAUMATIC, NORMOCEPHALIC - Eye Exam Eye Exam: EOMI - ENT Exam ENT Exam: Mucous Membranes Moist - Respiratory Exam Respiratory Exam: NORMAL BREATHING PATTERN - Cardiovascular Exam Cardiovascular Exam: REGULAR RHYTHM - GI/Abdominal Exam GI & Abdominal Exam: Soft, Tenderness. absent: Distended, Firm, Guarding, Rigid Additional comments: Inscision well approximated, mildly erythematous - Neurological Exam Neurological Exam: Alert, Awake - Psychiatric Exam Psychiatric exam: Normal Affect, Normal Mood - Skin Skin Exam: Dry Assessment and Plan - Assessment and Plan (Free Text) Assessment: This is a 60M POD#2 s/p small bowel resection and doing well Continue NGT Suction NPO IVF Continue pain control Serial Abdominal exams Continue medical managment per primary team Will Discuss with Dr. Hayden Oneal PGY-6 <Primo Blake - Last Filed: 07/11/16 10:24> Subjective - Date & Time of Evaluation Time of Evaluation: 10:00 - Subjective Subjective: Patient was seen and examined at the bedside. Agree with resident's note above Objective - Vital Signs/Intake and Output Vital Signs (last 24 hours): Temp Pulse Resp BP Pulse Ox 98.9 F 67 20 143/83 97 07/11/16 07:47 07/11/16 07:47 07/11/16 07:47 07/11/16 07:47 07/11/16 07:47 Intake and Output: 07/11/16 07/11/16 06:59 18:59 Output Total 400 Balance -400 - Medications Medications: Current Medications Acetaminophen (Tylenol 650 Mg Supp) 650 mg [place] Q6 PRN PRN Reason: Fever >100.4 F Famotidine (Pepcid) 20 mg IV Q12 [facility] Last Admin: 07/11/16 09:22 Dose: 20 mg Heparin Sodium (Porcine) (Heparin) 5,000 units SC Q8 [facility] PRN Reason: Protocol Last Admin: 07/11/16 09:23 Dose: 5,000 units Hydromorphone HCl (Dilaudid) 1 mg IVP Q4H PRN PRN Reason: Pain, moderate (4-7) Last Admin: 07/11/16 04:28 Dose: 1 mg Lactated Ringer's (Lactated Ringer's) 1,000 mls @ 100 mls/hr IV .Q10H [facility] Last Admin: 07/11/16 00:24 Dose: 100 mls/hr Piperacillin Sod/Tazobactam (Sod 3.375 gm/ Sodium Chloride) 100 mls @ 100 mls/ hr IVPB Q6 [facility] Last Admin: 07/11/16 03:42 Dose: 100 mls/hr Sodium Chloride (Sodium Chloride 0.9%) 1,000 mls @ 999 mls/hr IV .Q1H1M [facility] Stop: 07/11/16 11:07 Last Admin: 07/10/16 13:03 Dose: Not Given Ondansetron HCl (Zofran Inj) 4 mg IV Q6 PRN PRN Reason: Nausea/Vomiting Last Admin: 07/09/16 10:26 Dose: 4 mg - Labs Labs: 07/11/16 07:04 07/11/16 07:04 PT 11.5 SECONDS (9.6-11.2) H 07/09/16 11:50 INR 1.11 (0.92-1.08) H 07/09/16 11:50 APTT 27.1 SECONDS (23.3-32.5) 07/09/16 11:50 Assessment and Plan - Assessment and Plan (Free Text) Plan: - NPO - NG tube to wall suction - IV fluids - Pain control - Zosyn - Insentive spirometry - DVT ppx - Out of bed and ambulate - Repeat labs in am - Will follow
[2016-07-11 08:15] LABS: BASO # 0.1 K/uL (0.0-0.2); BASO % 0.6 % (0.0-2.0); EOS # 0.3 K/uL (0.0-0.7); EOS % 3.4 % (0.0-4.0); HEMATOCRIT 40.3 % (35.0-51.0); LYMPH # 1.3 K/uL (1.0-4.3); LYMPH % 14.1 % (20.0-40.0); MEAN CELL VOLUME 91.6 fl (80.0-94.0); MEAN CORPUSCULAR HEMOGLOBIN 30.8 pg (27.0-31.0); MEAN CORPUSCULAR HGB CONC 33.6 g/dL (33.0-37.0); MEAN PLATELET VOLUME 11.4 fl (7.2-11.7); MONO # 0.9 K/uL (0.0-0.8); MONO % 9.3 % (0.0-10.0); NEUT # 6.7 K/uL (1.8-7.0); NEUT % 72.6 % (50.0-75.0); RED CELL DISTRIBUTION WIDTH 13.2 % (11.5-14.5); WHITE BLOOD COUNT 9.3 K/uL (4.8-10.8)
[2016-07-12] MEDS: Lactated Ringer's 1,000 ML IV SCH ×2 (00:29→05:36)
[2016-07-12] MEDS: Piperacillin/Tazobact 3.375 GM in Sodium Chloride 0.9% 100 ML IVPB SCH ×4 (03:31→22:32)
[2016-07-12 08:00] LABS: BASO % 0.3 % (0.0-2.0); EOS # 0.2 K/uL (0.0-0.7); EOS % 2.3 % (0.0-4.0); HEMATOCRIT 44.7 % (35.0-51.0); LYMPH # 1.4 K/uL (1.0-4.3); LYMPH % 14.5 % (20.0-40.0); MEAN CELL VOLUME 91.5 fl (80.0-94.0); MEAN CORPUSCULAR HEMOGLOBIN 30.9 pg (27.0-31.0); MEAN CORPUSCULAR HGB CONC 33.7 g/dL (33.0-37.0); MEAN PLATELET VOLUME 10.9 fl (7.2-11.7); MONO % 10.2 % (0.0-10.0); NEUT # 7.3 K/uL (1.8-7.0); NEUT % 72.7 % (50.0-75.0)
[2016-07-12 08:02] LABS: BLOOD UREA NITROGEN 16 mg/dl (9-20); CALCIUM 8.6 mg/dL (8.4-10.2); CARBON DIOXIDE 27 mmol/L (22-30); CHLORIDE 100 mmol/L (98-107); GFR AFRICAN-AMERICAN > 60; GLUCOSE,RANDOM 102 mg/dL (75-110); SODIUM 138 mmol/l (132-148)
--- NOTE | 2016-07-12 08:24 | CP.PCM.PN ---
Subjective - Date & Time of Evaluation Date of Evaluation: 07/12/16 Time of Evaluation: 08:23 - Subjective Subjective: doing well, w/o distress no f/c, n/v/d. bw noted. still w/ ngt to low intermittent suctionstill w/ abd tenderness Objective - Vital Signs/Intake and Output Vital Signs (last 24 hours): Temp Pulse Resp BP Pulse Ox 98.6 F 63 20 145/90 97 07/12/16 07:37 07/12/16 07:37 07/12/16 07:37 07/12/16 07:37 07/12/16 07:37 Intake and Output: 07/12/16 07/12/16 06:59 18:59 Output Total 450 Balance -450 - Medications Medications: Current Medications Acetaminophen (Tylenol 650 Mg Supp) 650 mg [place] Q6 PRN PRN Reason: Fever >100.4 F Famotidine (Pepcid) 20 mg IV Q12 [facility] Last Admin: 07/11/16 21:30 Dose: 20 mg Heparin Sodium (Porcine) (Heparin) 5,000 units SC Q8 [facility] PRN Reason: Protocol Last Admin: 07/12/16 00:29 Dose: 5,000 units Hydromorphone HCl (Dilaudid) 1 mg IVP Q4H PRN PRN Reason: Pain, moderate (4-7) Last Admin: 07/11/16 20:01 Dose: 1 mg Lactated Ringer's (Lactated Ringer's) 1,000 mls @ 100 mls/hr IV .Q10H [facility] Last Admin: 07/12/16 05:36 Dose: Not Given Piperacillin Sod/Tazobactam (Sod 3.375 gm/ Sodium Chloride) 100 mls @ 100 mls/ hr IVPB Q6 [facility] Last Admin: 07/12/16 03:31 Dose: 100 mls/hr Ondansetron HCl (Zofran Inj) 4 mg IV Q6 PRN PRN Reason: Nausea/Vomiting Last Admin: 07/12/16 01:06 Dose: 4 mg - Labs Labs: 07/12/16 05:40 07/12/16 05:40 PT 11.5 SECONDS (9.6-11.2) H 07/09/16 11:50 INR 1.11 (0.92-1.08) H 07/09/16 11:50 APTT 27.1 SECONDS (23.3-32.5) 07/09/16 11:50 - Constitutional Appears: Well, Non-toxic, No Acute Distress - Head Exam Head Exam: ATRAUMATIC, NORMAL INSPECTION, NORMOCEPHALIC - Eye Exam Eye Exam: EOMI, Normal appearance, PERRL Pupil Exam: NORMAL ACCOMODATION, PERRL - ENT Exam ENT Exam: Mucous Membranes Moist, Normal Exam - Neck Exam Neck Exam: Full ROM, Normal Inspection. absent: Lymphadenopathy - Respiratory Exam Respiratory Exam: Clear to Ausculation Bilateral, NORMAL BREATHING PATTERN - Cardiovascular Exam Cardiovascular Exam: REGULAR RHYTHM, +S1, +S2. absent: Murmur - GI/Abdominal Exam GI & Abdominal Exam: Soft, Tenderness, Normal Bowel Sounds Additional comments: around surgical site - Extremities Exam Extremities Exam: Full ROM, Normal Capillary Refill, Normal Inspection. absent : Joint Swelling, Pedal Edema - Back Exam Back Exam: NORMAL INSPECTION - Neurological Exam Neurological Exam: Alert, Awake, CN II-XII Intact, Normal Gait, Oriented x3 - Psychiatric Exam Psychiatric exam: Normal Affect, Normal Mood - Skin Skin Exam: Dry, Intact, Normal Color, Warm Assessment and Plan (1) DVT prophylaxis Status: Acute (2) Small bowel obstruction Status: Acute - Assessment and Plan (Free Text) Assessment: (1) DVT prophylaxis Assessment & Plan: scd and ae hose, ambulation heparin Status: Acute (2) Small bowel obstruction Assessment & Plan: zosyn paind and nausea control ivf ngt surgery fever control f/u c/s ice chips no further fevers
--- NOTE | 2016-07-12 10:34 | CP.PCM.PN ---
Subjective - Date & Time of Evaluation Date of Evaluation: 07/12/16 Time of Evaluation: 10:32 - Subjective Subjective: General Surgery Progress Note for Dr. Blake This 60M was seen and examined this AM at bedside. Nurse reports no acute events overnight. Patient was afebrile overnight with stable vitals. 450cc bilious output overnight from NGT. He denies any chest pain, SOB, nause, vomiting or diarrhea. He denies flatus or BM. His only new complaint is difficulty sleeping. Objective - Vital Signs/Intake and Output Vital Signs (last 24 hours): Temp Pulse Resp BP Pulse Ox 98.6 F 63 20 145/90 97 07/12/16 07:37 07/12/16 07:37 07/12/16 07:37 07/12/16 07:37 07/12/16 07:37 Intake and Output: 07/12/16 07/12/16 06:59 18:59 Output Total 450 Balance -450 - Medications Medications: Current Medications Acetaminophen (Tylenol 650 Mg Supp) 650 mg [place] Q6 PRN PRN Reason: Fever >100.4 F Famotidine (Pepcid) 20 mg IV Q12 [facility] Last Admin: 07/12/16 09:33 Dose: 20 mg Heparin Sodium (Porcine) (Heparin) 5,000 units SC Q8 [facility] PRN Reason: Protocol Last Admin: 07/12/16 09:32 Dose: 5,000 units Hydromorphone HCl (Dilaudid) 1 mg IVP Q4H PRN PRN Reason: Pain, moderate (4-7) Last Admin: 07/11/16 20:01 Dose: 1 mg Lactated Ringer's (Lactated Ringer's) 1,000 mls @ 100 mls/hr IV .Q10H [facility] Last Admin: 07/12/16 05:36 Dose: Not Given Piperacillin Sod/Tazobactam (Sod 3.375 gm/ Sodium Chloride) 100 mls @ 100 mls/ hr IVPB Q6 [facility] Last Admin: 07/12/16 09:37 Dose: 100 mls/hr Potassium Chloride/Dextrose/Sod Cl (Potassium Chl 20 Meq In D5-1/2ns) 1,000 mls @ 100 mls/hr IV .Q10H [facility] Stop: 07/13/16 10:29 Ketorolac Tromethamine (Toradol) 15 mg IVP Q6 PRN PRN Reason: Pain, moderate (4-7) Ondansetron HCl (Zofran Inj) 4 mg IV Q6 PRN PRN Reason: Nausea/Vomiting Last Admin: 07/12/16 01:06 Dose: 4 mg Zolpidem Tartrate (Ambien) 5 mg NG ONCE PRN PRN Reason: Insomnia - Labs Labs: 07/12/16 05:40 07/12/16 05:40 PT 11.5 SECONDS (9.6-11.2) H 07/09/16 11:50 INR 1.11 (0.92-1.08) H 07/09/16 11:50 APTT 27.1 SECONDS (23.3-32.5) 07/09/16 11:50 - Constitutional Appears: Non-toxic, No Acute Distress - Head Exam Head Exam: ATRAUMATIC, NORMOCEPHALIC - Eye Exam Eye Exam: EOMI - ENT Exam ENT Exam: Mucous Membranes Moist - Respiratory Exam Respiratory Exam: NORMAL BREATHING PATTERN - Cardiovascular Exam Cardiovascular Exam: REGULAR RHYTHM - GI/Abdominal Exam GI & Abdominal Exam: Soft, Tenderness. absent: Distended, Firm, Guarding, Rigid Additional comments: Inscision well approximated, mildly erythematous - Neurological Exam Neurological Exam: Alert, Awake - Psychiatric Exam Psychiatric exam: Normal Affect, Normal Mood - Skin Skin Exam: Dry Assessment and Plan - Assessment and Plan (Free Text) Assessment: This is a 60M POD#3 s/p small bowel resection and doing well Continue NGT Suction NPO IVF D5 1/2 + 20K Toradol for pain Ambien for sleep Serial Abdominal exams OOB Incentive spirometry Continue medical managment per primary team Will Discuss with Dr. Hayden Oneal PGY-1
[2016-07-12] MEDS: Potassium Ch 20mEq in D5-1/2NS 1,000 ML IV SCH ×2 (17:34→23:11)
[2016-07-13] MEDS: Lactated Ringer's 1,000 ML IV SCH ×4 (03:59→19:26)
[2016-07-13] MEDS: Piperacillin/Tazobact 3.375 GM in Sodium Chloride 0.9% 100 ML IVPB SCH ×4 (04:03→21:48)
[2016-07-13] MEDS: Potassium Ch 20mEq in D5-1/2NS 1,000 ML IV SCH (06:55)
[2016-07-13 07:31] LABS: BASO % 0.5 % (0.0-2.0); EOS # 0.6 K/uL (0.0-0.7); EOS % 7.3 % (0.0-4.0); HEMATOCRIT 40.1 % (35.0-51.0); LYMPH # 1.6 K/uL (1.0-4.3); LYMPH % 19.2 % (20.0-40.0); MEAN CELL VOLUME 91.7 fl (80.0-94.0); MEAN CORPUSCULAR HEMOGLOBIN 30.8 pg (27.0-31.0); MEAN CORPUSCULAR HGB CONC 33.6 g/dL (33.0-37.0); MEAN PLATELET VOLUME 10.9 fl (7.2-11.7); MONO % 11.6 % (0.0-10.0); NEUT # 5.3 K/uL (1.8-7.0); NEUT % 61.4 % (50.0-75.0); RED CELL DISTRIBUTION WIDTH 12.9 % (11.5-14.5); WHITE BLOOD COUNT 8.6 K/uL (4.8-10.8)
[2016-07-13 07:50] LABS: BLOOD UREA NITROGEN 13 mg/dl (9-20); CALCIUM 8.4 mg/dL (8.4-10.2); CARBON DIOXIDE 27 mmol/L (22-30); CHLORIDE 103 mmol/L (98-107); GFR AFRICAN-AMERICAN > 60; GLUCOSE,RANDOM 118 mg/dL (75-110); POTASSIUM 3.2 MMOL/L (3.6-5.0); SODIUM 139 mmol/l (132-148)
--- NOTE | 2016-07-13 08:19 | CP.PCM.PN ---
Subjective - Date & Time of Evaluation Date of Evaluation: 07/13/16 Time of Evaluation: 08:16 - Subjective Subjective: General Surgery - Dr. Blake Pt S&E. JOSE ROBERTO. Pt has mild incisional pain but complains mostly of discomfort from NGT. He is ambulating and states he has passed flatus 5x. No N/V, F/C, SOB/CP. NGT had 350cc bilious drainage overnight. Objective - Vital Signs/Intake and Output Vital Signs (last 24 hours): Temp Pulse Resp BP Pulse Ox 96 F L 73 20 130/76 97 07/13/16 00:55 07/13/16 00:55 07/13/16 00:55 07/13/16 00:55 07/13/16 00:55 - Medications Medications: Current Medications Acetaminophen (Tylenol 650 Mg Supp) 650 mg [place] Q6 PRN PRN Reason: Fever >100.4 F Famotidine (Pepcid) 20 mg IV Q12 [facility] Last Admin: 07/12/16 23:03 Dose: 20 mg Heparin Sodium (Porcine) (Heparin) 5,000 units SC Q8 [facility] PRN Reason: Protocol Last Admin: 07/13/16 00:33 Dose: 5,000 units Hydromorphone HCl (Dilaudid) 1 mg IVP Q4H PRN PRN Reason: Pain, moderate (4-7) Last Admin: 07/11/16 20:01 Dose: 1 mg Lactated Ringer's (Lactated Ringer's) 1,000 mls @ 100 mls/hr IV .Q10H [facility] Last Admin: 07/13/16 07:04 Dose: 100 mls/hr Piperacillin Sod/Tazobactam (Sod 3.375 gm/ Sodium Chloride) 100 mls @ 100 mls/ hr IVPB Q6 [facility] Last Admin: 07/13/16 04:03 Dose: 100 mls/hr Potassium Chloride/Dextrose/Sod Cl (Potassium Chl 20 Meq In D5-1/2ns) 1,000 mls @ 100 mls/hr IV .Q10H [facility] Stop: 07/13/16 10:29 Last Admin: 07/13/16 06:55 Dose: Not Given Ketorolac Tromethamine (Toradol) 15 mg IVP Q6 PRN PRN Reason: Pain, moderate (4-7) Ondansetron HCl (Zofran Inj) 4 mg IV Q6 PRN PRN Reason: Nausea/Vomiting Last Admin: 07/12/16 01:06 Dose: 4 mg Zolpidem Tartrate (Ambien) 5 mg NG ONCE PRN PRN Reason: Insomnia Last Admin: 07/12/16 22:32 Dose: 5 mg - Labs Labs: 07/13/16 06:40 07/13/16 06:40 PT 11.5 SECONDS (9.6-11.2) H 07/09/16 11:50 INR 1.11 (0.92-1.08) H 07/09/16 11:50 APTT 27.1 SECONDS (23.3-32.5) 07/09/16 11:50 - Head Exam Head Exam: ATRAUMATIC, NORMAL INSPECTION, NORMOCEPHALIC - Eye Exam Eye Exam: Normal appearance - ENT Exam ENT Exam: Mucous Membranes Moist - Respiratory Exam Respiratory Exam: NORMAL BREATHING PATTERN. absent: Respiratory Distress - Cardiovascular Exam Cardiovascular Exam: REGULAR RHYTHM - GI/Abdominal Exam GI & Abdominal Exam: Distended, Soft. absent: Guarding, Rigid, Tenderness, Rebound Additional comments: midline incision C/D/I with shilpi, slight erythema around incision - Neurological Exam Neurological Exam: Alert, Oriented x3 - Psychiatric Exam Psychiatric exam: Normal Affect, Normal Mood - Skin Skin Exam: Dry, Intact Assessment and Plan - Assessment and Plan (Free Text) Assessment: 60M POD#4 s/p small bowel resection for SBO -Continue NGT to suction for now, poss. removal later today -Encourage OOB/Ambulation -Path - ischemic small bowel, no other findings DW Dr Hayden Luis PGY2
[2016-07-13] MEDS: Potassium CL 10 MEQ/50 ML 50 ML IVPB SCH ×4 (11:31→16:12)
[2016-07-13] MEDS ORDERED: DiphenhydrAMINE 50 mg/ml Inj IVP PRN (14:15)
[2016-07-13] MEDS: Potassium Chl 40 mEq in D5-1/2 1,000 ML IV SCH (17:59)
--- NOTE | 2016-07-13 19:09 | CARD ---
APPROVED REPORT EKG Measurement Heart [id number] <Conclusion> Normal sinus rhythm Normal ECG
--- NOTE | 2016-07-13 23:18 | CP.PCM.PN ---
Subjective - Date & Time of Evaluation Date of Evaluation: 07/13/16 Time of Evaluation: 07:00 - Subjective Subjective: pt comfortable in bed nodistress no f/c, n/v/d. am labs pending ivf and surigcal notes appriciated. Objective - Vital Signs/Intake and Output Vital Signs (last 24 hours): Temp Pulse Resp BP Pulse Ox 98.2 F 70 20 147/88 99 07/13/16 16:11 07/13/16 16:11 07/13/16 16:11 07/13/16 16:11 07/13/16 16:11 Intake and Output: 07/13/16 07/14/16 18:59 06:59 Intake Total 700 Output Total 1200 Balance -500 - Medications Medications: Current Medications Acetaminophen (Tylenol 650 Mg Supp) 650 mg [place] Q6 PRN PRN Reason: Fever >100.4 F Diphenhydramine HCl (Benadryl) 50 mg IVP HS PRN PRN Reason: Insomnia Famotidine (Pepcid) 20 mg IV Q12 [facility] Last Admin: 07/13/16 21:48 Dose: 20 mg Heparin Sodium (Porcine) (Heparin) 5,000 units SC Q8 [facility] PRN Reason: Protocol Last Admin: 07/13/16 17:30 Dose: 5,000 units Hydromorphone HCl (Dilaudid) 1 mg IVP Q4H PRN PRN Reason: Pain, moderate (4-7) Last Admin: 07/11/16 20:01 Dose: 1 mg Lactated Ringer's (Lactated Ringer's) 1,000 mls @ 100 mls/hr IV .Q10H [facility] Last Admin: 07/13/16 19:26 Dose: Not Given Piperacillin Sod/Tazobactam (Sod 3.375 gm/ Sodium Chloride) 100 mls @ 100 mls/ hr IVPB Q6 [facility] Last Admin: 07/13/16 21:48 Dose: 100 mls/hr Potassium Chloride/Dextrose/Sod Cl (Potassium Chl 40 Meq In D5-1/2ns) 1,000 mls @ 80 mls/hr IV .[id number] [facility] Stop: 07/14/16 14:41 Last Admin: 07/13/16 17:59 Dose: 80 mls/hr Ketorolac Tromethamine (Toradol) 15 mg IVP Q6 PRN PRN Reason: Pain, moderate (4-7) Ondansetron HCl (Zofran Inj) 4 mg IV Q6 PRN PRN Reason: Nausea/Vomiting Last Admin: 07/12/16 01:06 Dose: 4 mg Zolpidem Tartrate (Ambien) 5 mg NG ONCE PRN PRN Reason: Insomnia Last Admin: 07/12/16 22:32 Dose: 5 mg - Labs Labs: 07/13/16 06:40 07/13/16 06:40 PT 11.5 SECONDS (9.6-11.2) H 07/09/16 11:50 INR 1.11 (0.92-1.08) H 07/09/16 11:50 APTT 27.1 SECONDS (23.3-32.5) 07/09/16 11:50 - Constitutional Appears: Well, Non-toxic, No Acute Distress - Head Exam Head Exam: ATRAUMATIC, NORMAL INSPECTION, NORMOCEPHALIC - Eye Exam Eye Exam: EOMI, Normal appearance, PERRL Pupil Exam: NORMAL ACCOMODATION, PERRL - ENT Exam ENT Exam: Mucous Membranes Moist, Normal Exam - Neck Exam Neck Exam: Full ROM, Normal Inspection. absent: Lymphadenopathy - Respiratory Exam Respiratory Exam: Clear to Ausculation Bilateral, NORMAL BREATHING PATTERN - Cardiovascular Exam Cardiovascular Exam: REGULAR RHYTHM, +S1, +S2. absent: Murmur - GI/Abdominal Exam GI & Abdominal Exam: Soft, Tenderness, Normal Bowel Sounds Additional comments: diffuse abd tendess, morea round surgical site - Extremities Exam Extremities Exam: Full ROM, Normal Capillary Refill, Normal Inspection. absent : Joint Swelling, Pedal Edema - Back Exam Back Exam: NORMAL INSPECTION - Neurological Exam Neurological Exam: Alert, Awake, CN II-XII Intact, Normal Gait, Oriented x3 - Psychiatric Exam Psychiatric exam: Normal Affect, Normal Mood - Skin Skin Exam: Dry, Intact, Normal Color, Warm Assessment and Plan (1) DVT prophylaxis Assessment & Plan: scd and ae hose, heparin Status: Acute (2) Small bowel obstruction Assessment & Plan: cont abx, surgery f/u cont ngt pain and fever control f/u b/w Status: Acute
[2016-07-14] MEDS: Potassium Chl 40 mEq in D5-1/2 1,000 ML IV SCH (04:10)
[2016-07-14] MEDS: Piperacillin/Tazobact 3.375 GM in Sodium Chloride 0.9% 100 ML IVPB SCH ×4 (04:13→21:40)
[2016-07-14] MEDS: Lactated Ringer's 1,000 ML IV SCH ×4 (06:21→22:30)
--- NOTE | 2016-07-14 07:38 | CP.PCM.PN ---
Subjective - Date & Time of Evaluation Date of Evaluation: 07/14/16 Time of Evaluation: 07:38 - Subjective Subjective: no complaitns/distress no f/c, n/v/d am labs pending ngt removed yesterday k notes yesterday. pending today. on ivf w/ kcl as could not susana kcl runs Objective - Vital Signs/Intake and Output Vital Signs (last 24 hours): Temp Pulse Resp BP Pulse Ox 99.1 F 69 20 132/83 98 07/14/16 00:48 07/14/16 00:48 07/14/16 00:48 07/14/16 00:48 07/14/16 00:48 - Medications Medications: Current Medications Acetaminophen (Tylenol 650 Mg Supp) 650 mg [place] Q6 PRN PRN Reason: Fever >100.4 F Diphenhydramine HCl (Benadryl) 50 mg IVP HS PRN PRN Reason: Insomnia Famotidine (Pepcid) 20 mg IV Q12 [facility] Last Admin: 07/13/16 21:48 Dose: 20 mg Heparin Sodium (Porcine) (Heparin) 5,000 units SC Q8 [facility] PRN Reason: Protocol Last Admin: 07/14/16 00:22 Dose: 5,000 units Hydromorphone HCl (Dilaudid) 1 mg IVP Q4H PRN PRN Reason: Pain, moderate (4-7) Last Admin: 07/11/16 20:01 Dose: 1 mg Lactated Ringer's (Lactated Ringer's) 1,000 mls @ 100 mls/hr IV .Q10H [facility] Last Admin: 07/14/16 06:21 Dose: Not Given Piperacillin Sod/Tazobactam (Sod 3.375 gm/ Sodium Chloride) 100 mls @ 100 mls/ hr IVPB Q6 [facility] Last Admin: 07/14/16 04:13 Dose: 100 mls/hr Potassium Chloride/Dextrose/Sod Cl (Potassium Chl 40 Meq In D5-1/2ns) 1,000 mls @ 80 mls/hr IV .[id number] [facility] Stop: 07/14/16 14:41 Last Admin: 07/14/16 04:10 Dose: Not Given Ketorolac Tromethamine (Toradol) 15 mg IVP Q6 PRN PRN Reason: Pain, moderate (4-7) Ondansetron HCl (Zofran Inj) 4 mg IV Q6 PRN PRN Reason: Nausea/Vomiting Last Admin: 07/12/16 01:06 Dose: 4 mg Zolpidem Tartrate (Ambien) 5 mg NG ONCE PRN PRN Reason: Insomnia Last Admin: 07/12/16 22:32 Dose: 5 mg - Labs Labs: 07/13/16 06:40 07/13/16 06:40 PT 11.5 SECONDS (9.6-11.2) H 07/09/16 11:50 INR 1.11 (0.92-1.08) H 07/09/16 11:50 APTT 27.1 SECONDS (23.3-32.5) 07/09/16 11:50 - Constitutional Appears: Well, Non-toxic, No Acute Distress - Head Exam Head Exam: ATRAUMATIC, NORMAL INSPECTION, NORMOCEPHALIC - Eye Exam Eye Exam: EOMI, Normal appearance, PERRL Pupil Exam: NORMAL ACCOMODATION, PERRL - ENT Exam ENT Exam: Mucous Membranes Moist, Normal Exam - Neck Exam Neck Exam: Full ROM, Normal Inspection. absent: Lymphadenopathy - Respiratory Exam Respiratory Exam: Clear to Ausculation Bilateral, NORMAL BREATHING PATTERN - Cardiovascular Exam Cardiovascular Exam: REGULAR RHYTHM, +S1, +S2. absent: Murmur - GI/Abdominal Exam GI & Abdominal Exam: Soft, Normal Bowel Sounds. absent: Tenderness - Extremities Exam Extremities Exam: Full ROM, Normal Capillary Refill, Normal Inspection. absent : Joint Swelling, Pedal Edema - Back Exam Back Exam: NORMAL INSPECTION - Neurological Exam Neurological Exam: Alert, Awake, CN II-XII Intact, Normal Gait, Oriented x3 - Psychiatric Exam Psychiatric exam: Normal Affect, Normal Mood - Skin Skin Exam: Dry, Intact, Normal Color, Warm Assessment and Plan (1) DVT prophylaxis Status: Acute (2) Small bowel obstruction Status: Acute - Assessment and Plan (Free Text) Assessment: (1) DVT prophylaxis Assessment & Plan: scd and ae hose, heparin Status: Acute (2) Small bowel obstruction Assessment & Plan: cont abx, surgery f/u cont ngt pain and fever control ngt out today, start liquids f/u b/w [id number] w/ kcl and maintainance fluids. recheck this am. pending am labs
--- NOTE | 2016-07-14 08:25 | CP.PCM.PN ---
<Suzan Luis - Last Filed: 07/14/16 08:23> Subjective - Date & Time of Evaluation Date of Evaluation: 07/14/16 Time of Evaluation: 08:23 - Subjective Subjective: General Surgery - Dr. Blake Pt S&E. JOSE ROBERTO. NGT was removed yesterday afternoon. Pt was remained NPO but will start clear liquids this morning. He is passing flatus, no BM yet. No n/v , f/c, sob/cp. He is ambulating. Objective - Vital Signs/Intake and Output Vital Signs (last 24 hours): Temp Pulse Resp BP Pulse Ox 98.9 F 66 20 145/79 99 07/14/16 07:41 07/14/16 07:41 07/14/16 07:41 07/14/16 07:41 07/14/16 07:41 - Medications Medications: Current Medications Acetaminophen (Tylenol 650 Mg Supp) 650 mg [place] Q6 PRN PRN Reason: Fever >100.4 F Diphenhydramine HCl (Benadryl) 50 mg IVP HS PRN PRN Reason: Insomnia Famotidine (Pepcid) 20 mg IV Q12 [facility] Last Admin: 07/13/16 21:48 Dose: 20 mg Heparin Sodium (Porcine) (Heparin) 5,000 units SC Q8 [facility] PRN Reason: Protocol Last Admin: 07/14/16 00:22 Dose: 5,000 units Hydromorphone HCl (Dilaudid) 1 mg IVP Q4H PRN PRN Reason: Pain, moderate (4-7) Last Admin: 07/11/16 20:01 Dose: 1 mg Lactated Ringer's (Lactated Ringer's) 1,000 mls @ 100 mls/hr IV .Q10H [facility] Last Admin: 07/14/16 06:21 Dose: Not Given Piperacillin Sod/Tazobactam (Sod 3.375 gm/ Sodium Chloride) 100 mls @ 100 mls/ hr IVPB Q6 [facility] Last Admin: 07/14/16 04:13 Dose: 100 mls/hr Potassium Chloride/Dextrose/Sod Cl (Potassium Chl 40 Meq In D5-1/2ns) 1,000 mls @ 80 mls/hr IV .[id number] [facility] Stop: 07/14/16 14:41 Last Admin: 07/14/16 04:10 Dose: Not Given Ketorolac Tromethamine (Toradol) 15 mg IVP Q6 PRN PRN Reason: Pain, moderate (4-7) Ondansetron HCl (Zofran Inj) 4 mg IV Q6 PRN PRN Reason: Nausea/Vomiting Last Admin: 07/12/16 01:06 Dose: 4 mg Zolpidem Tartrate (Ambien) 5 mg NG ONCE PRN PRN Reason: Insomnia Last Admin: 07/12/16 22:32 Dose: 5 mg - Labs Labs: 07/13/16 06:40 07/13/16 06:40 PT 11.5 SECONDS (9.6-11.2) H 07/09/16 11:50 INR 1.11 (0.92-1.08) H 07/09/16 11:50 APTT 27.1 SECONDS (23.3-32.5) 07/09/16 11:50 - Constitutional Appears: No Acute Distress - Head Exam Head Exam: ATRAUMATIC, NORMAL INSPECTION, NORMOCEPHALIC - Eye Exam Eye Exam: Normal appearance - ENT Exam ENT Exam: Mucous Membranes Moist - Respiratory Exam Respiratory Exam: NORMAL BREATHING PATTERN. absent: Respiratory Distress - GI/Abdominal Exam GI & Abdominal Exam: Distended, Soft, Tenderness (appropriately tender). absent : Guarding, Rigid, Rebound Additional comments: midline incision c/d/i with shilpi, erythema resolving - Neurological Exam Neurological Exam: Alert, Oriented x3 - Psychiatric Exam Psychiatric exam: Normal Affect, Normal Mood - Skin Skin Exam: Dry, Intact Assessment and Plan - Assessment and Plan (Free Text) Assessment: 60M POD#5 s/p small bowel resection for SBO -CLD today, will monitor tolerance and advance slowly -Monitor for BM -Encourage OOB/Ambulation DW Dr Hayden Luis PGY2 <Primo Blake - Last Filed: 07/14/16 14:41> Subjective - Date & Time of Evaluation Time of Evaluation: 14:00 - Subjective Subjective: Patient was seen and examined at the bedside. Agree with resident's note above Objective - Vital Signs/Intake and Output Vital Signs (last 24 hours): Temp Pulse Resp BP Pulse Ox 98.9 F 66 20 145/79 99 07/14/16 07:41 07/14/16 07:41 07/14/16 07:41 07/14/16 07:41 07/14/16 07:41 - Medications Medications: Current Medications Acetaminophen (Tylenol 650 Mg Supp) 650 mg [place] Q6 PRN PRN Reason: Fever >100.4 F Diphenhydramine HCl (Benadryl) 50 mg IVP HS PRN PRN Reason: Insomnia Famotidine (Pepcid) 20 mg IV Q12 [facility] Last Admin: 07/14/16 08:33 Dose: 20 mg Heparin Sodium (Porcine) (Heparin) 5,000 units [place] Q8 [facility] PRN Reason: Protocol Last Admin: 07/14/16 08:32 Dose: 5,000 units Hydromorphone HCl (Dilaudid) 1 mg IVP Q4H PRN PRN Reason: Pain, moderate (4-7) Last Admin: 07/11/16 20:01 Dose: 1 mg Piperacillin Sod/Tazobactam (Sod 3.375 gm/ Sodium Chloride) 100 mls @ 100 mls/ hr IVPB Q6 [facility] Last Admin: 07/14/16 09:15 Dose: 100 mls/hr Potassium Chloride/Dextrose/Sod Cl (Potassium Chl 40 Meq In D5-1/2ns) 1,000 mls @ 80 mls/hr IV .[id number] [facility] Stop: 07/14/16 14:41 Last Admin: 07/14/16 04:10 Dose: Not Given Lactated Ringer's (Lactated Ringer's) 1,000 mls @ 125 mls/hr IV .Q8H [facility] Ketorolac Tromethamine (Toradol) 15 mg IVP Q6 PRN PRN Reason: Pain, moderate (4-7) Ondansetron HCl (Zofran Inj) 4 mg IV Q6 PRN PRN Reason: Nausea/Vomiting Last Admin: 07/14/16 09:17 Dose: 4 mg Zolpidem Tartrate (Ambien) 5 mg NG ONCE PRN PRN Reason: Insomnia Last Admin: 07/12/16 22:32 Dose: 5 mg - Labs Labs: 07/14/16 08:00 07/14/16 08:00 PT 11.5 SECONDS (9.6-11.2) H 07/09/16 11:50 INR 1.11 (0.92-1.08) H 07/09/16 11:50 APTT 27.1 SECONDS (23.3-32.5) 07/09/16 11:50 Assessment and Plan - Assessment and Plan (Free Text) Plan: - Keep NPO - IV fluids - Out of bed and ambulate - repeat labs in am - DVT ppx - Will follow
[2016-07-14 09:33] LABS: BASO # 0.1 K/uL (0.0-0.2); BASO % 0.8 % (0.0-2.0); EOS # 0.4 K/uL (0.0-0.7); EOS % 5.9 % (0.0-4.0); HEMATOCRIT 44.1 % (35.0-51.0); LYMPH # 1.7 K/uL (1.0-4.3); LYMPH % 23.3 % (20.0-40.0); MEAN CELL VOLUME 91.7 fl (80.0-94.0); MEAN CORPUSCULAR HEMOGLOBIN 30.6 pg (27.0-31.0); MEAN CORPUSCULAR HGB CONC 33.3 g/dL (33.0-37.0); MEAN PLATELET VOLUME 10.9 fl (7.2-11.7); MONO # 0.8 K/uL (0.0-0.8); MONO % 10.4 % (0.0-10.0); NEUT # 4.4 K/uL (1.8-7.0); NEUT % 59.6 % (50.0-75.0); RED CELL DISTRIBUTION WIDTH 12.9 % (11.5-14.5); WHITE BLOOD COUNT 7.4 K/uL (4.8-10.8)
[2016-07-14 09:59] LABS: BLOOD UREA NITROGEN 12 mg/dl (9-20); CARBON DIOXIDE 26 mmol/L (22-30); CHLORIDE 104 mmol/L (98-107); GFR AFRICAN-AMERICAN > 60; GLUCOSE,RANDOM 114 mg/dL (75-110); POTASSIUM 3.8 MMOL/L (3.6-5.0); SODIUM 140 mmol/l (132-148)
[2016-07-15] MEDS: Piperacillin/Tazobact 3.375 GM in Sodium Chloride 0.9% 100 ML IVPB SCH ×4 (04:49→21:32)
[2016-07-15 08:07] LABS: BASO # 0.1 K/uL (0.0-0.2); BASO % 0.7 % (0.0-2.0); EOS # 0.6 K/uL (0.0-0.7); EOS % 7.4 % (0.0-4.0); HEMATOCRIT 40.2 % (35.0-51.0); LYMPH % 26.3 % (20.0-40.0); MEAN CELL VOLUME 90.7 fl (80.0-94.0); MEAN CORPUSCULAR HEMOGLOBIN 30.2 pg (27.0-31.0); MEAN CORPUSCULAR HGB CONC 33.3 g/dL (33.0-37.0); MEAN PLATELET VOLUME 10.8 fl (7.2-11.7); MONO # 0.8 K/uL (0.0-0.8); MONO % 10.3 % (0.0-10.0); NEUT # 4.2 K/uL (1.8-7.0); NEUT % 55.3 % (50.0-75.0); NRBC % 0.1 % (0.0-0.0); WHITE BLOOD COUNT 7.5 K/uL (4.8-10.8)
[2016-07-15 08:17] LABS: BLOOD UREA NITROGEN 9 mg/dl (9-20); CALCIUM 8.7 mg/dL (8.4-10.2); CARBON DIOXIDE 26 mmol/L (22-30); CHLORIDE 105 mmol/L (98-107); GFR AFRICAN-AMERICAN > 60; GLUCOSE,RANDOM 95 mg/dL (75-110); POTASSIUM 3.8 MMOL/L (3.6-5.0); SODIUM 139 mmol/l (132-148)
--- NOTE | 2016-07-15 09:39 | CP.PCM.PN ---
Subjective - Date & Time of Evaluation Date of Evaluation: 07/15/16 Time of Evaluation: 09:39 - Subjective Subjective: doing well, no complaints. passing flatusn o stool no f.c, n/v/d bw noted. k normal, no wbc. penidng surgery to adv diet Objective - Vital Signs/Intake and Output Vital Signs (last 24 hours): Temp Pulse Resp BP Pulse Ox 98.3 F 79 20 124/82 96 07/15/16 08:07 07/15/16 08:07 07/15/16 08:07 07/15/16 08:07 07/15/16 08:07 - Medications Medications: Current Medications Acetaminophen (Tylenol 650 Mg Supp) 650 mg [place] Q6 PRN PRN Reason: Fever >100.4 F Diphenhydramine HCl (Benadryl) 50 mg IVP HS PRN PRN Reason: Insomnia Famotidine (Pepcid) 20 mg IV Q12 [facility] Last Admin: 07/14/16 20:29 Dose: 20 mg Heparin Sodium (Porcine) (Heparin) 5,000 units SC Q8 [facility] PRN Reason: Protocol Last Admin: 07/15/16 00:43 Dose: 5,000 units Hydromorphone HCl (Dilaudid) 1 mg IVP Q4H PRN PRN Reason: Pain, moderate (4-7) Last Admin: 07/11/16 20:01 Dose: 1 mg Piperacillin Sod/Tazobactam (Sod 3.375 gm/ Sodium Chloride) 100 mls @ 100 mls/ hr IVPB Q6 [facility] Last Admin: 07/15/16 04:49 Dose: 100 mls/hr Lactated Ringer's (Lactated Ringer's) 1,000 mls @ 125 mls/hr IV .Q8H [facility] Last Admin: 07/14/16 22:30 Dose: Not Given Ketorolac Tromethamine (Toradol) 15 mg IVP Q6 PRN PRN Reason: Pain, moderate (4-7) Ondansetron HCl (Zofran Inj) 4 mg IV Q6 PRN PRN Reason: Nausea/Vomiting Last Admin: 07/14/16 20:31 Dose: 4 mg Zolpidem Tartrate (Ambien) 5 mg NG ONCE PRN PRN Reason: Insomnia Last Admin: 07/12/16 22:32 Dose: 5 mg - Labs Labs: 07/15/16 05:30 07/15/16 05:30 PT 11.5 SECONDS (9.6-11.2) H 07/09/16 11:50 INR 1.11 (0.92-1.08) H 07/09/16 11:50 APTT 27.1 SECONDS (23.3-32.5) 07/09/16 11:50 - Constitutional Appears: Well, Non-toxic, No Acute Distress - Head Exam Head Exam: ATRAUMATIC, NORMAL INSPECTION, NORMOCEPHALIC - Eye Exam Eye Exam: EOMI, Normal appearance, PERRL Pupil Exam: NORMAL ACCOMODATION, PERRL - ENT Exam ENT Exam: Mucous Membranes Moist, Normal Exam - Neck Exam Neck Exam: Full ROM, Normal Inspection. absent: Lymphadenopathy - Respiratory Exam Respiratory Exam: Clear to Ausculation Bilateral, NORMAL BREATHING PATTERN - Cardiovascular Exam Cardiovascular Exam: REGULAR RHYTHM, RRR, +S1, +S2. absent: Murmur - GI/Abdominal Exam GI & Abdominal Exam: Soft, Normal Bowel Sounds. absent: Tenderness Additional comments: surical site c/d/i - Extremities Exam Extremities Exam: Full ROM, Normal Capillary Refill, Normal Inspection. absent : Joint Swelling, Pedal Edema - Back Exam Back Exam: NORMAL INSPECTION - Neurological Exam Neurological Exam: Alert, Awake, CN II-XII Intact, Normal Gait, Oriented x3 - Psychiatric Exam Psychiatric exam: Normal Affect, Normal Mood - Skin Skin Exam: Dry, Intact, Normal Color, Warm Assessment and Plan (1) DVT prophylaxis Status: Acute (2) Small bowel obstruction Status: Acute - Assessment and Plan (Free Text) Assessment: (1) DVT prophylaxis Assessment & Plan: scd and ae hose, heparin Status: Acute (2) Small bowel obstruction Assessment & Plan: cont abx, surgery f/u cont ngt pain and fever control cont liquids [id number], montior
--- NOTE | 2016-07-15 11:32 | CP.PCM.PN ---
<Shawn Maldonado - Last Filed: 07/15/16 11:37> Subjective - Date & Time of Evaluation Date of Evaluation: 07/15/16 Time of Evaluation: 07:50 - Subjective Subjective: SURGERY PROGRESS FOR DR. BLAKE 60M seen and examined at bedside. Patient denies pain, states he is tolerating diet, Denies nausea and vomiting with most recent meal. Admits to flatus, denies bowel movement. Objective - Vital Signs/Intake and Output Vital Signs (last 24 hours): Temp Pulse Resp BP Pulse Ox 98.3 F 79 20 124/82 96 07/15/16 08:07 07/15/16 08:07 07/15/16 08:07 07/15/16 08:07 07/15/16 08:07 - Medications Medications: Current Medications Acetaminophen (Tylenol 650 Mg Supp) 650 mg [place] Q6 PRN PRN Reason: Fever >100.4 F Diphenhydramine HCl (Benadryl) 50 mg IVP HS PRN PRN Reason: Insomnia Famotidine (Pepcid) 20 mg IV Q12 [facility] Last Admin: 07/14/16 20:29 Dose: 20 mg Heparin Sodium (Porcine) (Heparin) 5,000 units [place] Q8 [facility] PRN Reason: Protocol Last Admin: 07/15/16 10:48 Dose: 5,000 units Hydromorphone HCl (Dilaudid) 1 mg IVP Q4H PRN PRN Reason: Pain, moderate (4-7) Last Admin: 07/11/16 20:01 Dose: 1 mg Piperacillin Sod/Tazobactam (Sod 3.375 gm/ Sodium Chloride) 100 mls @ 100 mls/ hr IVPB Q6 [facility] Last Admin: 07/15/16 09:53 Dose: 100 mls/hr Lactated Ringer's (Lactated Ringer's) 1,000 mls @ 125 mls/hr IV .Q8H [facility] Last Admin: 07/14/16 22:30 Dose: Not Given Ketorolac Tromethamine (Toradol) 15 mg IVP Q6 PRN PRN Reason: Pain, moderate (4-7) Ondansetron HCl (Zofran Inj) 4 mg IV Q6 PRN PRN Reason: Nausea/Vomiting Last Admin: 07/14/16 20:31 Dose: 4 mg Zolpidem Tartrate (Ambien) 5 mg NG ONCE PRN PRN Reason: Insomnia Last Admin: 07/12/16 22:32 Dose: 5 mg - Labs Labs: 07/15/16 05:30 07/15/16 05:30 PT 11.5 SECONDS (9.6-11.2) H 07/09/16 11:50 INR 1.11 (0.92-1.08) H 07/09/16 11:50 APTT 27.1 SECONDS (23.3-32.5) 07/09/16 11:50 - Constitutional Appears: Non-toxic, No Acute Distress - Respiratory Exam Respiratory Exam: Clear to Ausculation Bilateral, NORMAL BREATHING PATTERN - Cardiovascular Exam Cardiovascular Exam: REGULAR RHYTHM, +S1, +S2 - GI/Abdominal Exam GI & Abdominal Exam: Soft. absent: Distended, Firm, Guarding, Rigid, Tenderness , Rebound Additional comments: [place] in place, Incision CDI. - Neurological Exam Neurological Exam: Alert, Awake - Skin Skin Exam: Dry, Intact, Normal Color, Warm Assessment and Plan - Assessment and Plan (Free Text) Assessment: 60M s/p Ex-lap w/ Small bowel resection POD6 - ADAT - encourage ambulation and incentive spirometer - await bowel movement Further recs discuss with Dr. Hayden Maldonado, PGY1 <Primo Blake - Last Filed: 07/15/16 13:38> Subjective - Date & Time of Evaluation Time of Evaluation: 13:15 - Subjective Subjective: Patient was seen and examined at the bedside. Agree with resident's note above. Objective - Vital Signs/Intake and Output Vital Signs (last 24 hours): Temp Pulse Resp BP Pulse Ox 98.3 F 79 20 124/82 96 07/15/16 08:07 07/15/16 08:07 07/15/16 08:07 07/15/16 08:07 07/15/16 08:07 - Medications Medications: Current Medications Acetaminophen (Tylenol 650 Mg Supp) 650 mg [place] Q6 PRN PRN Reason: Fever >100.4 F Diphenhydramine HCl (Benadryl) 50 mg IVP HS PRN PRN Reason: Insomnia Famotidine (Pepcid) 20 mg IV Q12 [facility] Last Admin: 07/15/16 11:42 Dose: 20 mg Heparin Sodium (Porcine) (Heparin) 5,000 units SC Q8 [facility] PRN Reason: Protocol Last Admin: 07/15/16 10:48 Dose: 5,000 units Hydromorphone HCl (Dilaudid) 1 mg IVP Q4H PRN PRN Reason: Pain, moderate (4-7) Last Admin: 07/11/16 20:01 Dose: 1 mg Piperacillin Sod/Tazobactam (Sod 3.375 gm/ Sodium Chloride) 100 mls @ 100 mls/ hr IVPB Q6 [facility] Last Admin: 07/15/16 09:53 Dose: 100 mls/hr Lactated Ringer's (Lactated Ringer's) 1,000 mls @ 125 mls/hr IV .Q8H [facility] Last Admin: 07/14/16 22:30 Dose: Not Given Ketorolac Tromethamine (Toradol) 15 mg IVP Q6 PRN PRN Reason: Pain, moderate (4-7) Ondansetron HCl (Zofran Inj) 4 mg IV Q6 PRN PRN Reason: Nausea/Vomiting Last Admin: 07/14/16 20:31 Dose: 4 mg Zolpidem Tartrate (Ambien) 5 mg NG ONCE PRN PRN Reason: Insomnia Last Admin: 07/12/16 22:32 Dose: 5 mg - Labs Labs: 07/15/16 05:30 07/15/16 05:30 PT 11.5 SECONDS (9.6-11.2) H 07/09/16 11:50 INR 1.11 (0.92-1.08) H 07/09/16 11:50 APTT 27.1 SECONDS (23.3-32.5) 07/09/16 11:50 Assessment and Plan - Assessment and Plan (Free Text) Plan: - Start clear liquid diet - pain control - IV fluids - Continue Zosyn - Insentive spirometry - DVT ppx - Out of bed and ambulate - Will follow
[2016-07-15] MEDS: Lactated Ringer's 1,000 ML IV SCH (21:36)
--- NOTE | 2016-07-16 01:57 | CP.PCM.PN ---
<Shawn Maldonado - Last Filed: 07/16/16 01:58> Subjective - Date & Time of Evaluation Date of Evaluation: 07/16/16 Time of Evaluation: 01:55 - Subjective Subjective: SURGERY PROGRESS NOTE FOR DR. BLAKE 60M seen and examined at bedside Patient denies pain, nausea, vomiting, Tolerating liquid diet, Admits to flatus. Objective - Vital Signs/Intake and Output Vital Signs (last 24 hours): Temp Pulse Resp BP Pulse Ox 97.9 F 64 18 136/88 97 07/15/16 15:46 07/15/16 15:46 07/15/16 15:46 07/15/16 15:46 07/15/16 15:46 Intake and Output: 07/15/16 07/16/16 18:59 06:59 Intake Total 300 Balance 300 - Medications Medications: Current Medications Acetaminophen (Tylenol 650 Mg Supp) 650 mg VA Q6 PRN PRN Reason: Fever >100.4 F Diphenhydramine HCl (Benadryl) 50 mg IVP HS PRN PRN Reason: Insomnia Famotidine (Pepcid) 20 mg IV Q12 [facility] Last Admin: 07/15/16 21:33 Dose: 20 mg Hydromorphone HCl (Dilaudid) 1 mg IVP Q4H PRN PRN Reason: Pain, moderate (4-7) Last Admin: 07/11/16 20:01 Dose: 1 mg Piperacillin Sod/Tazobactam (Sod 3.375 gm/ Sodium Chloride) 100 mls @ 100 mls/ hr IVPB Q6 [facility] Last Admin: 07/15/16 21:32 Dose: 100 mls/hr Lactated Ringer's (Lactated Ringer's) 1,000 mls @ 125 mls/hr IV .Q8H [facility] Last Admin: 07/15/16 21:36 Dose: 125 mls/hr Ketorolac Tromethamine (Toradol) 15 mg IVP Q6 PRN PRN Reason: Pain, moderate (4-7) Ondansetron HCl (Zofran Inj) 4 mg IV Q6 PRN PRN Reason: Nausea/Vomiting Last Admin: 07/14/16 20:31 Dose: 4 mg Zolpidem Tartrate (Ambien) 5 mg NG ONCE PRN PRN Reason: Insomnia Last Admin: 07/12/16 22:32 Dose: 5 mg - Labs Labs: 07/15/16 05:30 07/15/16 05:30 PT 11.5 SECONDS (9.6-11.2) H 07/09/16 11:50 INR 1.11 (0.92-1.08) H 07/09/16 11:50 APTT 27.1 SECONDS (23.3-32.5) 07/09/16 11:50 - Constitutional Appears: Non-toxic, No Acute Distress - Head Exam Head Exam: ATRAUMATIC - Respiratory Exam Respiratory Exam: Clear to Ausculation Bilateral, NORMAL BREATHING PATTERN - Cardiovascular Exam Cardiovascular Exam: REGULAR RHYTHM, +S1, +S2 - GI/Abdominal Exam GI & Abdominal Exam: Soft. absent: Distended, Firm, Guarding, Rigid, Tenderness , Rebound Additional comments: shilpi in place, incision CDI - Neurological Exam Neurological Exam: Alert, Awake - Skin Skin Exam: Dry, Intact, Normal Color, Warm Assessment and Plan - Assessment and Plan (Free Text) Assessment: 60M s/p ex-lap with small bowel resection POD7 - ADAT - IVF, pain control - Continue Abx - Incentive spirometry - DVT ppx - Out of bed and ambulate - Will follow Further recs discuss with Attending Geoff Maldonado PGY1 <Primo Blake - Last Filed: 07/16/16 13:20> Subjective - Date & Time of Evaluation Time of Evaluation: 12:30 - Subjective Subjective: Patient was seen and examined at the bedside. Agree with resident's note above. Passing flatus and had a large bowel movement. Tolerating clear liquid diet. Objective - Vital Signs/Intake and Output Vital Signs (last 24 hours): Temp Pulse Resp BP Pulse Ox 98.2 F 71 20 123/80 98 07/16/16 08:10 07/16/16 08:10 07/16/16 08:10 07/16/16 08:10 07/16/16 08:10 - Medications Medications: Current Medications Acetaminophen (Tylenol 650 Mg Supp) 650 mg VA Q6 PRN PRN Reason: Fever >100.4 F Diphenhydramine HCl (Benadryl) 50 mg IVP HS PRN PRN Reason: Insomnia Hydromorphone HCl (Dilaudid) 1 mg IVP Q4H PRN PRN Reason: Pain, moderate (4-7) Last Admin: 07/11/16 20:01 Dose: 1 mg Piperacillin Sod/Tazobactam (Sod 3.375 gm/ Sodium Chloride) 100 mls @ 100 mls/ hr IVPB Q6 [facility] Last Admin: 07/16/16 09:36 Dose: 100 mls/hr Lactated Ringer's (Lactated Ringer's) 1,000 mls @ 125 mls/hr IV .Q8H [facility] Last Admin: 07/16/16 06:50 Dose: Not Given Ketorolac Tromethamine (Toradol) 15 mg IVP Q6 PRN PRN Reason: Pain, moderate (4-7) Ondansetron HCl (Zofran Inj) 4 mg IV Q6 PRN PRN Reason: Nausea/Vomiting Last Admin: 07/14/16 20:31 Dose: 4 mg Zolpidem Tartrate (Ambien) 5 mg NG ONCE PRN PRN Reason: Insomnia Last Admin: 07/12/16 22:32 Dose: 5 mg - Labs Labs: 07/15/16 05:30 07/15/16 05:30 PT 11.5 SECONDS (9.6-11.2) H 07/09/16 11:50 INR 1.11 (0.92-1.08) H 07/09/16 11:50 APTT 27.1 SECONDS (23.3-32.5) 07/09/16 11:50 Assessment and Plan - Assessment and Plan (Free Text) Plan: - Start regular diet - Patient is clear for discharge home from the surgical stand point - Patient will follow up with me in the office in 10 days to 2 weeks for post- op visit
[2016-07-16] MEDS: Piperacillin/Tazobact 3.375 GM in Sodium Chloride 0.9% 100 ML IVPB SCH ×2 (04:17→09:36)
[2016-07-16] MEDS: Lactated Ringer's 1,000 ML IV SCH (06:50)
[2016-07-16 08:11] VITALS: BP 123/80; PULSE 71; RESP 20; TEMP 98.2; O2SAT 98
--- NOTE | 2016-07-16 10:48 | CP.PCM.PN ---
Subjective - Date & Time of Evaluation Date of Evaluation: 07/16/16 Time of Evaluation: 10:46 - Subjective Subjective: pt offers no complaitns. no f/c, n/v. has small amt of loose stool last night. passing flatus. spoke w/ dr keane who states can adv dit to soft/bland. bw noted. Objective - Vital Signs/Intake and Output Vital Signs (last 24 hours): Temp Pulse Resp BP Pulse Ox 98.2 F 71 20 123/80 98 07/16/16 08:10 07/16/16 08:10 07/16/16 08:10 07/16/16 08:10 07/16/16 08:10 - Medications Medications: Current Medications Acetaminophen (Tylenol 650 Mg Supp) 650 mg IN Q6 PRN PRN Reason: Fever >100.4 F Diphenhydramine HCl (Benadryl) 50 mg IVP HS PRN PRN Reason: Insomnia Hydromorphone HCl (Dilaudid) 1 mg IVP Q4H PRN PRN Reason: Pain, moderate (4-7) Last Admin: 07/11/16 20:01 Dose: 1 mg Piperacillin Sod/Tazobactam (Sod 3.375 gm/ Sodium Chloride) 100 mls @ 100 mls/ hr IVPB Q6 [facility] Last Admin: 07/16/16 09:36 Dose: 100 mls/hr Lactated Ringer's (Lactated Ringer's) 1,000 mls @ 125 mls/hr IV .Q8H [facility] Last Admin: 07/16/16 06:50 Dose: Not Given Ketorolac Tromethamine (Toradol) 15 mg IVP Q6 PRN PRN Reason: Pain, moderate (4-7) Ondansetron HCl (Zofran Inj) 4 mg IV Q6 PRN PRN Reason: Nausea/Vomiting Last Admin: 07/14/16 20:31 Dose: 4 mg Zolpidem Tartrate (Ambien) 5 mg NG ONCE PRN PRN Reason: Insomnia Last Admin: 07/12/16 22:32 Dose: 5 mg - Labs Labs: 07/15/16 05:30 07/15/16 05:30 PT 11.5 SECONDS (9.6-11.2) H 07/09/16 11:50 INR 1.11 (0.92-1.08) H 07/09/16 11:50 APTT 27.1 SECONDS (23.3-32.5) 07/09/16 11:50 - Constitutional Appears: Well, Non-toxic, No Acute Distress - Head Exam Head Exam: ATRAUMATIC, NORMAL INSPECTION, NORMOCEPHALIC - Eye Exam Eye Exam: EOMI, Normal appearance, PERRL Pupil Exam: NORMAL ACCOMODATION, PERRL - ENT Exam ENT Exam: Mucous Membranes Moist, Normal Exam - Neck Exam Neck Exam: Full ROM, Normal Inspection. absent: Lymphadenopathy - Respiratory Exam Respiratory Exam: Clear to Ausculation Bilateral, NORMAL BREATHING PATTERN - Cardiovascular Exam Cardiovascular Exam: REGULAR RHYTHM, +S1, +S2. absent: Murmur - GI/Abdominal Exam GI & Abdominal Exam: Soft, Normal Bowel Sounds. absent: Tenderness - Exam Bimanual exam: NORMAL BIMANUAL EXAM - Extremities Exam Extremities Exam: Full ROM, Normal Capillary Refill, Normal Inspection. absent : Joint Swelling, Pedal Edema - Back Exam Back Exam: NORMAL INSPECTION - Neurological Exam Neurological Exam: Alert, Awake, CN II-XII Intact, Normal Gait, Oriented x3 - Psychiatric Exam Psychiatric exam: Normal Affect, Normal Mood - Skin Skin Exam: Dry, Intact, Normal Color, Warm Assessment and Plan (1) DVT prophylaxis Assessment & Plan: scd and aehose, heparin Status: Acute (2) Small bowel obstruction Assessment & Plan: anbx surgeyr adv diet to sooft/bland pain control ?? dc today or tomorrow if susana po passing stool/flats Status: Acute
--- NOTE | 2016-07-17 08:32 | CP.PCM.DIS ---
Provider - Provider Date of Admission: 07/09/16 01:39 Attending physician: Lucas Pérez MD Time Spent in preparation of Discharge (in minutes): 15 Diagnosis - Discharge Diagnosis (1) DVT prophylaxis Status: Acute (2) Small bowel obstruction Status: Acute Hospital Course - Lab Results Lab Results: Most Recent Lab Values WBC 7.5 K/uL (4.8-10.8) 07/15/16 05:30 RBC 4.43 Mil/uL (4.40-5.90) 07/15/16 05:30 Hgb 13.4 g/dL (12.0-18.0) 07/15/16 05:30 Hct 40.2 % (35.0-51.0) 07/15/16 05:30 MCV 90.7 fl (80.0-94.0) 07/15/16 05:30 MCH 30.2 pg (27.0-31.0) 07/15/16 05:30 MCHC 33.3 g/dL (33.0-37.0) 07/15/16 05:30 RDW 13.0 % (11.5-14.5) 07/15/16 05:30 Plt Count 159 K/uL (130-400) 07/15/16 05:30 MPV 10.8 fl (7.2-11.7) 07/15/16 05:30 Neut % (Auto) 55.3 % (50.0-75.0) 07/15/16 05:30 Lymph % (Auto) 26.3 % (20.0-40.0) 07/15/16 05:30 Bradley % (Auto) 10.3 % (0.0-10.0) H 07/15/16 05:30 Eos % (Auto) 7.4 % (0.0-4.0) H 07/15/16 05:30 Baso % (Auto) 0.7 % (0.0-2.0) 07/15/16 05:30 Neut # 4.2 K/uL (1.8-7.0) 07/15/16 05:30 Lymph # 2.0 K/uL (1.0-4.3) 07/15/16 05:30 Bradley # 0.8 K/uL (0.0-0.8) 07/15/16 05:30 Eos # 0.6 K/uL (0.0-0.7) 07/15/16 05:30 Baso # 0.1 K/uL (0.0-0.2) 07/15/16 05:30 PT 11.5 SECONDS (9.6-11.2) H 07/09/16 11:50 INR 1.11 (0.92-1.08) H 07/09/16 11:50 APTT 27.1 SECONDS (23.3-32.5) 07/09/16 11:50 Sodium 139 mmol/l (132-148) 07/15/16 05:30 Potassium 3.8 MMOL/L (3.6-5.0) 07/15/16 05:30 Chloride 105 mmol/L (98-107) 07/15/16 05:30 Carbon Dioxide 26 mmol/L (22-30) 07/15/16 05:30 Anion Gap 11 (10-20) 07/15/16 05:30 BUN 9 mg/dl (9-20) 07/15/16 05:30 Creatinine 0.9 mg/dL (0.8-1.5) 07/15/16 05:30 Est GFR ( Amer) > 60 07/15/16 05:30 Est GFR (Non-Af Amer) > 60 07/15/16 05:30 POC Glucose (mg/dL) 118 mg/dL (65-110) H 07/10/16 11:03 Random Glucose 95 mg/dL (75-110) 07/15/16 05:30 Calcium 8.7 mg/dL (8.4-10.2) 07/15/16 05:30 Total Bilirubin 1.2 mg/dl (0.2-1.3) 07/11/16 07:04 AST 37 U/L (17-59) 07/11/16 07:04 ALT 27 U/L (21-72) 07/11/16 07:04 Alkaline Phosphatase 38 U/L (38-126) 07/11/16 07:04 Total Protein 5.7 G/DL (6.3-8.2) L 07/11/16 07:04 Albumin 3.3 g/dL (3.5-5.0) L 07/11/16 07:04 Globulin 2.4 gm/dL (2.2-3.9) 07/11/16 07:04 Albumin/Globulin Ratio 1.4 (1.0-2.1) 07/11/16 07:04 Lipase 70 U/L (23-300) 07/08/16 22:13 Urine Color Yellow (YELLOW) 07/09/16 01:16 Urine Clarity Clear (Clear) 07/09/16 01:16 Urine pH 6.0 (5.0-8.0) 07/09/16 01:16 Ur Specific Bailey 1.026 (1.003-1.030) 07/09/16 01:16 Urine Protein 30 mg/dL (NEGATIVE) 07/09/16 01:16 Urine Glucose (UA) 50 mg/dL (Normal) 07/09/16 01:16 Urine Ketones 80 mg/dL (NEGATIVE) 07/09/16 01:16 Urine Blood Negative (NEGATIVE) 07/09/16 01:16 Urine Nitrate Negative (NEGATIVE) 07/09/16 01:16 Urine Bilirubin Negative (NEGATIVE) 07/09/16 01:16 Urine Urobilinogen 0.2-1.0 mg/dL (0.2-1.0) 07/09/16 01:16 Ur Leukocyte Esterase Neg Miya/uL (Negative) 07/09/16 01:16 Urine RBC (Auto) 2 /hpf (0-3) 07/09/16 01:16 Urine Microscopic WBC 1 /hpf (0-5) 07/09/16 01:16 Urine Bacteria Rare (<OCC) 07/09/16 01:16 Blood Type A POSITIVE 07/09/16 11:50 Blood Type Confirm A POSITIVE 07/09/16 12:20 Antibody Screen Negative 07/09/16 11:50 BBK History Checked No verified bt 07/09/16 11:50 Discharge Exam - Head Exam Head Exam: ATRAUMATIC, NORMAL INSPECTION, NORMOCEPHALIC Discharge Plan - Follow Up Plan Condition: FAIR Disposition: HOME/ ROUTINE Instructions: Oxycodone/Acetaminophen (By mouth), Bowel Obstruction (GEN) Additional Instructions: Maintain Abdominal Staple sutureline NURSE OB May shower If any redness, drainage or swelling from site, call MD No heavy lifting final [id number] cleared by surgery for dc f/u rmg, surgery as directed Referrals: Kofman,Primo, MD [Staff Provider] - Dimitry Cantu, TAMIR, [employer] MANAGER [Advanced Practice Nurse] -
== END 2016-07-16 15:10 | disposition home or self-care (01) | DRG 330 ==
LOC: H.ER 21:44 → H.ERHOLD 07-09 01:39 → H.MEDSURG1 07-09 02:43
PROVIDERS: ADMIT Family Medicine; ATTEND Family Medicine
PROC: 0DT80ZZ Resection of Small Intestine, Open Approach (ICD-10-PCS; principal; 2016-07-09 13:30)
DX: K55.029 Acute infarction of small intestine, extent unspecified (principal); R18.8 Other ascites; R00.0 Tachycardia, unspecified; R50.9 Fever, unspecified